=== PATIENT | female | born 1970 | race Caucasian/White ===

== ENCOUNTER → 2018-08-12 17:38 | Outpatient (CLI) | payer OTHER | END | disposition home or self-care (01) | LOC: D.MRI 07:00 | DX: M25.551 Pain in right hip (principal) ==

== ENCOUNTER → 2018-08-19 16:52 | Outpatient (CLI) | payer OTHER | END | disposition home or self-care (01) | LOC: D.LABREF 16:52 | DX: M87.88 Other osteonecrosis, other site (principal); Z11.8 Encounter for screening for other infectious and parasitic diseases ==

== ENCOUNTER 2018-09-21 05:05 | Inpatient (IN) | payer OTHER ==
[2018-09-16 11:51] LABS: BASOPHILS 0.3 % (0-2); EOSINOPHILS 4.9 % (0-7); HEMATOCRIT 37.5 % (36.0-48.0); HEMOGLOBIN 12.2 g/dL (12-16); IMMATURE GRANULOCYTES 0.3 % (0-5); LYMPHOCYTES 30.8 % (15-50); MCHC 32.5 g/dL (31.0-37.0); MCV 86.2 fL (80.0-100.0); MONOCYTES 6.5 % (2-11); NEUTROPHILS 57.2 % (40-80); PLATELET COUNT 170 10x3/uL (130-400); RBC 4.35 10x6/uL (4.00-5.40); RDW 14.2 % (11.5-14.5)
[2018-09-16 11:54] LABS: CALC OSMOLALITY 274 mosm/kg (275-300); CALCIUM 9.6 mg/dL (8.5-10.1); CARBON DIOXIDE 25.5 mmol/L (21.0-32.0); CHLORIDE - SERUM 101 mmol/L (98-107); CREATININE - SERUM 0.6 mg/dL (0.6-1.3); GLUCOSE 106 mg/dL (74-106); POTASSIUM - SERUM 4.2 mmol/L (3.5-5.1); SODIUM 137 mmol/L (136-145); UREA NITROGEN 16 mg/dL (7-18); eGFR NON AFRICAN AMERICAN > 90 mL/min (90-120)
[2018-09-16 11:55] LABS: APTT 35.5 SECONDS (22.8-39.4); INR 1.02 (0.85-1.17)
[2018-09-16 12:12] LABS: APPEARANCE CLEAR (CLEAR); BILIRUBIN NEGATIVE (NEGATIVE); COLOR YELLOW (YELLOW); GLUCOSE NEGATIVE (NEGATIVE); KETONE NEGATIVE (NEGATIVE); NITRITE NEGATIVE (NEGATIVE); PROTEIN NEGATIVE (NEGATIVE); SPECIFIC GRAVITY 1.015 (1.005-1.020); UROBILINOGEN NORMAL (NORMAL)
[~2018-09-21] VITALS: Ht 172.7 cm; Wt 99.5 kg
--- NOTE | ~2018-09-21 | MORECARE ---
CASE MANAGEMENT DISCHARGE SUMMARY PATIENT: MELA BOLDEN UNIT: [id number] ADM DATE: 09/21/18 AGE: 48 : [birth year] SEX: F ROOM/BED: D.2208 AUTHOR: DENI BRAN PHYSICIAN: REFERRING PHYSICIAN: NILA PINEDA MD DATE OF SERVICE: 09/24/18 Discharge Plan Patient Name: MELA BOLDEN Facility: [facility]:[place] : 1970 Planned Disposition: Home Anticipated Discharge Date: Discharge Date: Expected LOS: Initial Reviewer: [email or web address] Initial Review Date: 09/21/2018 Generated: 09/24/18 10:52 am Comments DCP- Discharge Planning Updated by [email or web address]: Adelaida Krueger on 09/24/18 8:[address] Patient Name: MELA BOLDEN Encounter No: [id number] : 1970 Primary Insurance: [facility] Anticipated DC Date: Planned Disposition: Home External Planned Provider: : DCP follow-up note: Patient and family in agreement with discharge plan. No changes to plan. Case management will follow and assist as needed. Adelaida Krueger DCP- Discharge Planning Updated by [email or web address]: Adelaida Krueger on 09/22/18 11:[address] Patient Name: MELA BOLDEN Admission Status: Elective Accout number: [id number] Admission Date: 09-21-2018 : 1970 Admission Diagnosis: Attending: NILA PINEDA Current LOS: 1 Anticipated DC Date: Planned Disposition: Home Primary Insurance: [facility] Discharge Planning Comments: CM met with patient to assess discharge planning needs. Patient lives independently at home, but will be discharging to her mothers house. Patient's house has 28 steps to enter her home and at her mothers house she will only have 4 steps. She stated that she has a walker, wheelchair, BSC, shower chair at home. She would like to do her therapy at [facility]. Patient's OP appointment is made for FridaySep 28 at 10:00 I spoke with Bill. If she discharges tomorrow CM will change her OP PT for Thursday. CM will continue to follow and assist with DC planning. Microarray Operations Vice President: Adelaida Krueger DCPIA - Discharge Planning Initial Assessment Updated by [email or web address]: Adelaida Krueger on 09/22/18 12:43 pm * Is the patient Alert and Oriented? Yes * How many steps to enter\exit or inside your home? 28 (4 mom) * PCP Betty Barry APN * Pharmacy [facility] on [address] * Preadmission Environment Home with Family * ADLs Independent * Equipment Bedside Commode Rolling Walker Shower Chair Walker Wheelchair * List name and contact numbers for known caregivers / representatives who currently or will assist patient after discharge: Venus (mother) [phone] * Verbal permission to speak to the caregivers and representatives has been obtained from the patient. Yes * Community resources currently utilized None * Additional services required to return to the preadmission environment? Yes * Can the patient safely return to the preadmission environment? Yes * Has this patient been hospitalized within the prior 30 days at any hospital? No Last DP export: 09/22/18 11:49 Patient Name: MELA BOLDEN Page 54368 at 0952 All edits/amendments must be made on the electronic document DICTATION DATE: 09/24/18950 BOX BENDER: RIGOBERTO 09/24/18950 RPT#: [id number] DC DATE: STATUS: ADM IN [facility] [address] [place] [address] END OF REPORT
--- NOTE | ~2018-09-21 | MORECARE ---
CASE MANAGEMENT DISCHARGE SUMMARY PATIENT: MELA BOLDEN UNIT: [id number] ADM DATE: 09/21/18 AGE: 48 : 66 SEX: F ROOM/BED: D.2208 AUTHOR: DENI BRAN PHYSICIAN: REFERRING PHYSICIAN: NILA PINEDA MD DATE OF SERVICE: 09/22/18 Discharge Plan Patient Name: MELA BOLDEN Facility: [facility]:[place] : 1970 Planned Disposition: Home Anticipated Discharge Date: Discharge Date: Expected LOS: Initial Reviewer: [email or web address] Initial Review Date: 09/21/2018 Generated: 09/22/18 1:49 pm Comments DCP- Discharge Planning Updated by [email or web address]: Adelaida Krueger on 09/22/18 11:[address] Patient Name: MELA BOLDEN Admission Status: Elective Accout number: [id number] Admission Date: 09-21-2018 : 1970 Admission Diagnosis: Attending: NILA PINEDA Current LOS: 1 Anticipated DC Date: Planned Disposition: Home Primary Insurance: [facility] Discharge Planning Comments: CM met with patient to assess discharge planning needs. Patient lives independently at home, but will be discharging to her mothers house. Patient's house has 28 steps to enter her home and at her mothers house she will only have 4 steps. She stated that she has a walker, wheelchair, BSC, shower chair at home. She would like to do her therapy at [facility]. Patient's OP appointment is made for FridaySep 28 at 10:00 I spoke with Bill. If she discharges tomorrow CM will change her OP PT for . CM will continue to follow and assist with DC planning. Data Architect Manager: Adelaida Krueger DCPIA - Discharge Planning Initial Assessment Updated by [email or web address]: Adelaida Krueger on 09/22/18 12:43 pm * Is the patient Alert and Oriented? Yes * How many steps to enter\exit or inside your home? 28 (4 mom) * PCP Betty Barry APN * Pharmacy [facility] on [place] * Preadmission Environment Home with Family * ADLs Independent * Equipment Bedside Commode Rolling Walker Shower Chair Walker Wheelchair * List name and contact numbers for known caregivers / representatives who currently or will assist patient after discharge: Venus (mother) [phone] * Verbal permission to speak to the caregivers and representatives has been obtained from the patient. Yes * Community resources currently utilized None * Additional services required to return to the preadmission environment? Yes * Can the patient safely return to the preadmission environment? Yes * Has this patient been hospitalized within the prior 30 days at any hospital? No Last DP export: 09/22/18 11:42 Patient Name: MELA BOLDEN Page 83522 at 1249 All edits/amendments must be made on the electronic document DICTATION DATE: 09/22/181248 LEAD C DEVELOPER: RIGOBERTO 09/22/181248 RPT#: [id number] DC DATE: STATUS: ADM IN [facility] [address] [place] [address] END OF REPORT
--- NOTE | ~2018-09-21 | OP ---
PATIENT NAME: MELA BOLDEN MEDICAL RECORD: [id number] :[birth year] LOCATION:D.MS [address]8 ADMISSION DATE:09/21/18 SURGEON: NILA PINEDA MD DATE OF OPERATION: 09/21/2018 PREOPERATIVE DIAGNOSIS: Avascular necrosis of the right hip. POSTOPERATIVE DIAGNOSIS: Avascular necrosis of the right hip. PROCEDURE: Right total hip arthroplasty. SURGEON: Nila Pineda MD ANESTHESIA: General. INTRAOPERATIVE COMPLICATIONS: None. SUMMARY OF PATHOLOGIC FINDINGS: Consistent with the preoperative diagnosis. The patient had collapse of the right femoral head. IMPLANTS USED: Jeny Accolade II stem, Jenkins Trident 2 cup, 36 D alpha code insert, 36 -2.5 mm Biolox insert, size 50 Tritanium Trident II cluster hole cup and 132 degree neck angle Accolade 4 TMZF coated. ESTIMATED BLOOD LOSS: 300 cc. OPERATIVE SUMMARY IN DETAIL: After obtaining appropriate preoperative orthopedic surgery consent as well as anesthetic consultation, evaluation and clearance, the patient was brought to the operating room and placed on the operating room table in a supine position. After general laryngeal mask airway was administered, the patient was placed in a left lateral decubitus position. All pressure points were well padded including the down leg perineal pad as well as axillary roll. The patient was held firmly to the operating table using vacuum pack suction system. Right lower extremity was then prepped and draped in routine sterile fashion. Curvilinear incision was made over the greater trochanter taking in line of the IT and split in line of the fibers of the IT band to reveal the gluteus medius and minimus attachment. These were reflected anteriorly. The hip capsule was split in a T-type fashion and saved for later reapproximation. Hip was dislocated. Femoral neck cut was made using the femoral neck cutting guide from the Accolade II system. At this point, the hip was approached. Circumferential labrectomy was followed with serial and sequential reaming to a size 50. A line to line was used for the Trident given this patient's young hard bone. A size [address] with good capture, no screws needed. Polyethylene liner was snapped into place and checked with the Stephani to be sure it was appropriately fit. Attention was then turned to the proximal femur. Serial and sequential reaming and broaching were done of the proximal femur for a size 4 Accolade II stem, which was put into place. Trials were then taken. It was felt that the -2.5 Biolox was the most appropriate for leg length maintenance and confucianist. This was tamped into place with the Brown taper, reduced, taken through range of motion and found to be stable in all planes. Intraoperative radiographs were taken and showed good position and placement of all components with exact leg length matching. Wound was copiously irrigated. A dilute Betadine irrigation was then followed by placement of 1 gram of vancomycin, 1 gram of tobramycin, and 1 gram of TXA into the wound. The gluteus medius and minimus were then reapproximated back to the greater OPERATIVE REPORT [id number] MELA BOLDEN trochanter using #5 Ethibond in a transosseous fashion. Having completed that, the IT band was closed with #2 Ethibond followed by #1 Vicryl, 2-0 Vicryl, and skin constance. Sterile dressings were applied. The patient was awakened and taken to recovery room in stable condition. All final needle and sponge counts were correct. TRANSINT:[id number] Voice Confirmation ID: [id number] DOCUMENT ID: [id number] 09/28/2018 Edited for cobbler sole errors, dmapryl. MIRIAM DIAZ, NILA JUNIOR at 1512 CC: [id number] DICTATION DATE: 09/21/18 1024 CERTIFIED ADAPTIVE PHYSICAL EDUCATOR: 09/21/18 1111 DIS IN 09/24/18 [place] [place] [address]
--- NOTE | ~2018-09-21 | MORECARE ---
CASE MANAGEMENT DISCHARGE SUMMARY PATIENT: MELA BOLDEN UNIT: [id number] ADM DATE: 09/21/18 AGE: 48 : [birth year] SEX: F ROOM/BED: D.2208 AUTHOR: DENI BRAN PHYSICIAN: REFERRING PHYSICIAN: NILA PINEDA MD DATE OF SERVICE: 09/22/18 Discharge Plan Patient Name: MELA BOLDEN Facility: [facility]:[place] : 1970 Planned Disposition: Home Anticipated Discharge Date: Discharge Date: Expected LOS: Initial Reviewer: [email or web address] Initial Review Date: 09/21/2018 Generated: 09/22/18 1:42 pm Patient Name: MELA BOLDEN Page 68166 at 1242 All edits/amendments must be made on the electronic document DICTATION DATE: 09/22/18 1241 WAGE ANALYST: RIGOBERTO 09/22/18 1241 RPT#: [id number] DC DATE: STATUS: ADM IN [facility] [address] [place] [address] END OF REPORT
--- NOTE | ~2018-09-21 | MORECARE ---
CASE MANAGEMENT DISCHARGE SUMMARY PATIENT: MELA BOLDEN UNIT: [id number] ADM DATE: 09/21/18 AGE: 48 : [birth year] SEX: F ROOM/BED: D.2208 AUTHOR: DENI BRAN PHYSICIAN: REFERRING PHYSICIAN: NILA PINEDA MD DATE OF SERVICE: 09/25/18 Discharge Plan Patient Name: MELA BOLDEN Facility: [facility]:[place] : 1970 Planned Disposition: Home Anticipated Discharge Date: Discharge Date: 09/24/2018 Expected LOS: 0 Initial Reviewer: [email or web address] Initial Review Date: 09/21/2018 Generated: 09/25/18 12:27 pm Comments DCP- Discharge Planning Updated by [email or web address]: Adelaida Krueger on 09/24/18 8:[address] Patient Name: MELA BOLDEN Encounter No: [id number] : 1970 Primary Insurance: [employer] [facility] Anticipated DC Date: Planned Disposition: Home External Planned Provider: : DCP follow-up note: Patient and family in agreement with discharge plan. No changes to plan. Case management will follow and assist as needed. Adelaida Krueger DCP- Discharge Planning Updated by [email or web address]: Adelaida Krueger on 09/22/18 11:[address] Patient Name: MELA BOLDEN Admission Status: Elective Accout number: [id number] Admission Date: 09-21-2018 : 1970 Admission Diagnosis: Attending: NILA PINEDA Current LOS: 1 Anticipated DC Date: Planned Disposition: Home Primary Insurance: [employer] [facility] Discharge Planning Comments: CM met with patient to assess discharge planning needs. Patient lives independently at home, but will be discharging to her mothers house. Patient's house has 28 steps to enter her home and at her mothers house she will only have 4 steps. She stated that she has a walker, wheelchair, BSC, shower chair at home. She would like to do her therapy at [facility]. Patient's OP appointment is made for FridaySep 28 at 10:00 I spoke with Bill. If she discharges tomorrow CM will change her OP PT for . CM will continue to follow and assist with DC planning. Cst: Adelaida Krueger DCPIA - Discharge Planning Initial Assessment Updated by [email or web address]: Adelaida Krueger on 09/22/18 12:43 pm * Is the patient Alert and Oriented? Yes * How many steps to enter\exit or inside your home? 28 (4 mom) * PCP Betty Barry CONCRETE PUMP OPERATOR HELPER * Pharmacy [facility] on [address] * Preadmission Environment Home with Family * ADLs Independent * Equipment Bedside Commode Rolling Walker Shower Chair Walker Wheelchair * List name and contact numbers for known caregivers / representatives who currently or will assist patient after discharge: Venus (mother) [phone] * Verbal permission to speak to the caregivers and representatives has been obtained from the patient. Yes * Community resources currently utilized None * Additional services required to return to the preadmission environment? Yes * Can the patient safely return to the preadmission environment? Yes * Has this patient been hospitalized within the prior 30 days at any hospital? No Last DP export: 09/24/18 8:52 a Patient Name: MELA BOLDEN Page 00301 at 1127 All edits/amendments must be made on the electronic document DICTATION DATE: 09/25/181126 STORE LEAD: RIGOBERTO 09/25/181126 RPT#: [id number] DC DATE:09/24/18 STATUS: DIS IN [facility] [address] [place] [address] END OF REPORT
[~2018-09-21 05:05] MED LIST: BENICAR40 MG PO; ESKALITH CR450 M1 PO; KLONOPIN0.5 MG PO; KLONOPIN1 MG PO; LIPITOR40 MG PO; LYRICA150 MG PO; MINIVELLE1 EAC1 TRANSDERM; NORCO 5/325 TAB1 TAB PO; PROZAC20 MG PO; SINGULAIR10 MG PO; VAGIFEM10 MCG VG
[2018-09-21 06:12] VITALS: BP 146/82; BMI 33.5
[2018-09-21 12:47] VITALS: BP 124/74; BMI 33.3
[2018-09-21 21:47] VITALS: BP 115/54
[2018-09-22 00:20] VITALS: BP 118/64
[2018-09-22 04:45] LABS: HEMATOCRIT 32.6 % (36.0-48.0); HEMOGLOBIN 10.3 g/dL (12-16); MCH 27.4 pg (26.0-34.0); MCHC 31.6 g/dL (31.0-37.0); MCV 86.7 fL (80.0-100.0); MEAN PLATELET VOLUME 9.4 fL (7.4-10.4); RBC 3.76 10x6/uL (4.00-5.40); RDW 14.3 % (11.5-14.5); WBC 8.9 10x3/uL (4.8-10.8)
[2018-09-22 05:43] VITALS: BP 129/73
[2018-09-22 08:30] VITALS: BP 104/64
[2018-09-22 12:34] VITALS: BP 128/65
[2018-09-22 15:45] VITALS: BP 117/55
[2018-09-22 17:51] VITALS: Ht 172.7 cm; Wt 99.5 kg
[2018-09-22 20:49] VITALS: BP 108/56
[2018-09-23 00:35] VITALS: BP 124/64
[2018-09-23 04:42] VITALS: BP 116/60
[2018-09-23 05:54] LABS: HEMATOCRIT 29.2 % (36.0-48.0); HEMOGLOBIN 9.1 g/dL (12-16); MCH 27.4 pg (26.0-34.0); MCHC 31.2 g/dL (31.0-37.0); MEAN PLATELET VOLUME 10.4 fL (7.4-10.4); RBC 3.32 10x6/uL (4.00-5.40); RDW 14.6 % (11.5-14.5)
[2018-09-23 05:56] LABS: WBC 6.5 10x3/uL (4.8-10.8)
[2018-09-23 08:33] VITALS: BP 117/74
[2018-09-23 12:45] VITALS: BP 111/58
[2018-09-23 22:16] VITALS: BP 137/62
[2018-09-24 04:58] VITALS: BP 140/70
[2018-09-24] MEDS ORDERED: ELIQUIS2.5 MG PO (07:36)
[2018-09-24] MEDS ORDERED: OXYCODONE-APAP1 TAB PO (07:37)
[2018-09-24] MEDS ORDERED: FOLBEE PLUS TAB1 TAB PO (07:38)
[2018-09-24 11:00] VITALS: BP 117/71
== END 2018-09-24 12:30 | disposition home or self-care (01) | DRG 470 ==
LOC: D.SDCHOLD 05:05 → D.MS 05:05 → D.SDCHOLD 07:30 → D.MS 11:26
PROVIDERS: Orthopaedic Surgery
PROC: 0SR90JZ Replacement of Right Hip Joint with Synthetic Substitute, Open Approach (ICD-10-PCS; principal; 2018-09-21 08:00)
DX: M87.9 Osteonecrosis, unspecified (principal); E72.12 Methylenetetrahydrofolate reductase deficiency; I10 Essential (primary) hypertension; E78.5 Hyperlipidemia, unspecified; K21.9 Gastro-esophageal reflux disease without esophagitis; F41.8 Other specified anxiety disorders

== ENCOUNTER 2018-09-26 18:57 | Inpatient (IN) | payer OTHER ==
[~2018-09-26] VITALS: Ht 172.7 cm; Wt 101.6 kg
--- NOTE | ~2018-09-26 | MORECARE ---
CASE MANAGEMENT DISCHARGE SUMMARY PATIENT: ADELE BOLDEN UNIT: [id number] ADM DATE: 09/26/18 AGE: 48 : 66 SEX: F ROOM/BED: D.2237 AUTHOR: DENI BRAN PHYSICIAN: REFERRING PHYSICIAN: NILA PINEDA MD DATE OF SERVICE: 10/02/18 Discharge Plan Patient Name: ADELE BOLDEN Facility: [facility]:[place] : 1970 Planned Disposition: Home Anticipated Discharge Date: Discharge Date: 10/01/2018 Expected LOS: Initial Reviewer: [email or web address] Initial Review Date: 09/29/2018 Generated: 10/02/18 4:47 pm Comments DCP- Discharge Planning Updated by [email or web address]: Tracy Umanzor on 10/01/18 8:[address] Received discharge orders. She is in agreement to discharge. She is going to her home and her sister will be staying with her. She states she feels comfortable with the stairs at her home and will have assistance to get up the stairs and then will stay in her one level home until her doctor appointment. I spoke with Adele at [facility] and they will see her tomorrow. Discharging today home with home health. DCP- Discharge Planning Updated by [email or web address]: Tracy Umanzor on 09/30/18 10:[address] Spoke with patient regarding discharge planning. RALPH for [facility] signed. She states her shoe does not fit. I called Luis Cardoza and Nedra and informed, she will have Hi call me. I called Adele at [facility] and she will put on her books to see tomorrow. States she will go to her home and her sister is going to stay with her. CM will continue to follow and assist with discharge planning/needs. DCP- Discharge Planning Updated by [id number]: Tracy Mcgregorpurnima on 09/29/18 9:[address] Patient Name: ADELE BOLDEN Admission Status: ER Accout number: [id number] Admission Date: 09-26-2018 : 1970 Admission Diagnosis:POSTPROCEDURAL FEVER Attending: BORIS ALLEN Current LOS: 3 Anticipated DC Date: Planned Disposition: Home Primary Insurance: [facility] Discharge Planning Comments: CM met with patient to discuss discharge planning, she is alone in the room. States she was staying with her mother prior to admission. States her mother only has 4 steps to get into her home and she has 28 steps at her own home. States she will be going back to stay with her mother again on discharge. States she has all the DME she needs. Declines need for home health services. States she will use [facility] for OP PT. States she has not started this yet. No needs identified at this time. CM will continue to follow and assist with discharge planning/needs. Director Of Clinical Education: Tracy Umanzor DCPIA - Discharge Planning Initial Assessment Updated by [email or web address]: Tracy Umanzor on 09/29/18 10:02 am * Is the patient Alert and Oriented? Yes * How many steps to enter\exit or inside your home? 4/0 * PCP Ariana Barry APN for Dr. Haider * Pharmacy [facility] on [address] * Preadmission Environment Home with Family * ADLs Partial Dependent * Partial ADLs (Assistance needed) Ambulation * Equipment Bedside Commode Rolling Walker Shower Chair Walker Wheelchair * List name and contact numbers for known caregivers / representatives who currently or will assist patient after discharge: Venus rubalcava - [phone] * Verbal permission to speak to the caregivers and representatives has been obtained from the patient. Yes * Community resources currently utilized Other * Please name any agencies selected above. Outpatient PT set up at [facility] * Additional services required to return to the preadmission environment? No * Can the patient safely return to the preadmission environment? Yes * Has this patient been hospitalized within the prior 30 days at any hospital? Yes Last DP export: 10/01/18 8:15 a Patient Name: ADELE BOLDEN Page 30090 at 1547 All edits/amendments must be made on the electronic document DICTATION DATE: 10/02/181545 SUPERVISOR MAJOR APPLIANCE ASSEMBLY: RIGOBERTO 10/02/181545 RPT#: [id number] DC DATE:10/01/18 STATUS: DIS IN [facility] [address] [place] [address] END OF REPORT
--- NOTE | ~2018-09-26 | MORECARE ---
CASE MANAGEMENT DISCHARGE SUMMARY PATIENT: ADELE BOLDEN UNIT: [id number] ADM DATE: 09/26/18 AGE: 48 : 66 SEX: F ROOM/BED: D.2237 AUTHOR: DENI BRAN PHYSICIAN: REFERRING PHYSICIAN: BORIS ALLEN MD DATE OF SERVICE: 10/01/18 Discharge Plan Patient Name: ADELE BOLDEN Facility: [facility]:[place] : 1970 Planned Disposition: Home Anticipated Discharge Date: Discharge Date: Expected LOS: Initial Reviewer: [email or web address] Initial Review Date: 09/29/2018 Generated: 10/01/18 10:15 am Comments DCP- Discharge Planning Updated by [email or web address]: Tracy Mcgregorpurnima on 10/01/18 8:[address] Received discharge orders. She is in agreement to discharge. She is going to her home and her sister will be staying with her. She states she feels comfortable with the stairs at her home and will have assistance to get up the stairs and then will stay in her one level home until her doctor appointment. I spoke with Adele at [facility] and they will see her tomorrow. Discharging today home with home health. DCP- Discharge Planning Updated by [email or web address]: Tracy Noé on 09/30/18 10:[address] Spoke with patient regarding discharge planning. RALPH for [facility] signed. She states her shoe does not fit. I called Luis Cardoza and Nedra and informed, she will have Hi call me. I called Adele at [facility] and she will put on her books to see tomorrow. States she will go to her home and her sister is going to stay with her. CM will continue to follow and assist with discharge planning/needs. DCP- Discharge Planning Updated by [email or web address]: Tracy Noé on 09/29/18 9:[address] Patient Name: ADELE BOLDEN Admission Status: ER Accout number: [id number] Admission Date: 09-26-2018 : 1970 Admission Diagnosis:POSTPROCEDURAL FEVER Attending: BORIS ALLEN Current LOS: 3 Anticipated DC Date: Planned Disposition: Home Primary Insurance: [facility] Discharge Planning Comments: CM met with patient to discuss discharge planning, she is alone in the room. States she was staying with her mother prior to admission. States her mother only has 4 steps to get into her home and she has 28 steps at her own home. States she will be going back to stay with her mother again on discharge. States she has all the DME she needs. Declines need for home health services. States she will use [facility] for OP PT. States she has not started this yet. No needs identified at this time. CM will continue to follow and assist with discharge planning/needs. Cd Manufacturing Supervisor: Tracy Umanzor DCPIA - Discharge Planning Initial Assessment Updated by [email or web address]: Tracy Noé on 09/29/18 10:02 am * Is the patient Alert and Oriented? Yes * How many steps to enter\exit or inside your home? 4/0 * PCP Ariana Barry APN for Dr. Haider * Pharmacy [facility] on [address] * Preadmission Environment Home with Family * ADLs Partial Dependent * Partial ADLs (Assistance needed) Ambulation * Equipment Bedside Commode Rolling Walker Shower Chair Walker Wheelchair * List name and contact numbers for known caregivers / representatives who currently or will assist patient after discharge: Venus rubalcava - [phone] * Verbal permission to speak to the caregivers and representatives has been obtained from the patient. Yes * Community resources currently utilized Other * Please name any agencies selected above. Outpatient PT set up at [facility] * Additional services required to return to the preadmission environment? No * Can the patient safely return to the preadmission environment? Yes * Has this patient been hospitalized within the prior 30 days at any hospital? Yes Last DP export: 09/30/18 10:12 a Patient Name: ADELE BOLDEN Page 56050 at 0915 All edits/amendments must be made on the electronic document DICTATION DATE: 10/01/18914 DRY PRESS OPERATOR HELPER: RIGOBERTO 10/01/18914 RPT#: [id number] DC DATE: STATUS: ADM IN [facility] [address] [place] [address] END OF REPORT
--- NOTE | ~2018-09-26 | MORECARE ---
CASE MANAGEMENT DISCHARGE SUMMARY PATIENT: MELA BOLDEN UNIT: [id number] ADM DATE: 09/26/18 AGE: 48 : 66 SEX: F ROOM/BED: D.2237 AUTHOR: DENI BRAN PHYSICIAN: REFERRING PHYSICIAN: BORIS ALLEN MD DATE OF SERVICE: 09/29/18 Discharge Plan Patient Name: MELA BOLDEN Facility: [facility]:[employer] : 1970 Planned Disposition: Home Anticipated Discharge Date: Discharge Date: Expected LOS: Initial Reviewer: [email or web address] Initial Review Date: 09/29/2018 Generated: 09/29/18 11:09 am Comments DCP- Discharge Planning Updated by [email or web address]: Tracy Umanzor on 09/29/18 9:[address] Patient Name: MELA BOLDEN Admission Status: ER Accout number: [id number] Admission Date: 09-26-2018 : 1970 Admission Diagnosis:POSTPROCEDURAL FEVER Attending: BORIS ALLEN Current LOS: 3 Anticipated DC Date: Planned Disposition: Home Primary Insurance: [facility] Discharge Planning Comments: CM met with patient to discuss discharge planning, she is alone in the room. States she was staying with her mother prior to admission. States her mother only has 4 steps to get into her home and she has 28 steps at her own home. States she will be going back to stay with her mother again on discharge. States she has all the DME she needs. Declines need for home health services. States she will use NP for OP PT. States she has not started this yet. No needs identified at this time. CM will continue to follow and assist with discharge planning/needs. Slime Plant Operator: Tracy Umanzor DCPIA - Discharge Planning Initial Assessment Updated by [email or web address]: Tracy Umanzor on 09/29/18 10:02 am * Is the patient Alert and Oriented? Yes * How many steps to enter\exit or inside your home? 4/0 * PCP Ariana Barry APN for Dr. Haider * Pharmacy [facility] on [address] * Preadmission Environment Home with Family * ADLs Partial Dependent * Partial ADLs (Assistance needed) Ambulation * Equipment Bedside Commode Rolling Walker Shower Chair Walker Wheelchair * List name and contact numbers for known caregivers / representatives who currently or will assist patient after discharge: Venus rubalcava - [phone] * Verbal permission to speak to the caregivers and representatives has been obtained from the patient. Yes * Community resources currently utilized Other * Please name any agencies selected above. Outpatient PT set up at [facility] * Additional services required to return to the preadmission environment? No * Can the patient safely return to the preadmission environment? Yes * Has this patient been hospitalized within the prior 30 days at any hospital? Yes Last DP export: 09/29/18 9:00 a Patient Name: MELA BOLDEN Page 95590 at 1009 All edits/amendments must be made on the electronic document DICTATION DATE: 09/29/181007 MILITARY AIRCRAFT DESIGNER: RIGOBERTO 09/29/181007 RPT#: [id number] DC DATE: STATUS: ADM IN [facility] [address] [place] [address] END OF REPORT
--- NOTE | ~2018-09-26 | MORECARE ---
CASE MANAGEMENT DISCHARGE SUMMARY PATIENT: ADELE BOLDEN UNIT: [id number] ADM DATE: 09/26/18 AGE: 48 : 66 SEX: F ROOM/BED: D.2237 AUTHOR: DENI BRAN PHYSICIAN: REFERRING PHYSICIAN: BORIS ALLEN MD DATE OF SERVICE: 09/30/18 Discharge Plan Patient Name: ADELE BOLDEN Facility: [facility]:[place] : 1970 Planned Disposition: Home Anticipated Discharge Date: Discharge Date: Expected LOS: Initial Reviewer: [email or web address] Initial Review Date: 09/29/2018 Generated: 09/30/18 12:12 pm Comments DCP- Discharge Planning Updated by [email or web address]: Tracy Mcgregorpurnima on 09/30/18 10:[address] Spoke with patient regarding discharge planning. RALPH for [employer] [facility] [address] [address] signed. She states her shoe does not fit. I called Luis Cardoza and Nedra and informed, she will have Hi call me. I called Adele at [employer] [facility] [address] and she will put on her books to see tomorrow. States she will go to her home and her sister is going to stay with her. CM will continue to follow and assist with discharge planning/needs. DCP- Discharge Planning Updated by [email or web address]: Tracy Mcgregorpurnima on 09/29/18 9:[address] Patient Name: ADELE BOLDEN Admission Status: ER Accout number: [id number] Admission Date: 09-26-2018 : 1970 Admission Diagnosis:POSTPROCEDURAL FEVER Attending: BORIS ALLEN Current LOS: 3 Anticipated DC Date: Planned Disposition: Home Primary Insurance: [facility] Discharge Planning Comments: CM met with patient to discuss discharge planning, she is alone in the room. States she was staying with her mother prior to admission. States her mother only has 4 steps to get into her home and she has 28 steps at her own home. States she will be going back to stay with her mother again on discharge. States she has all the DME she needs. Declines need for home health services. States she will use NP for OP PT. States she has not started this yet. No needs identified at this time. CM will continue to follow and assist with discharge planning/needs. Elevator Dispatcher: Tracy Noé DCPIA - Discharge Planning Initial Assessment Updated by [email or web address]: Tracy Noé on 09/29/18 10:02 am * Is the patient Alert and Oriented? Yes * How many steps to enter\exit or inside your home? 4/0 * PCP Ariana Barry APN for Dr. Haider * Pharmacy [facility] on [address] * Preadmission Environment Home with Family * ADLs Partial Dependent * Partial ADLs (Assistance needed) Ambulation * Equipment Bedside Commode Rolling Walker Shower Chair Walker Wheelchair * List name and contact numbers for known caregivers / representatives who currently or will assist patient after discharge: Venus Lau [facility] - [phone] * Verbal permission to speak to the caregivers and representatives has been obtained from the patient. Yes * Community resources currently utilized Other * Please name any agencies selected above. Outpatient PT set up at [facility] * Additional services required to return to the preadmission environment? No * Can the patient safely return to the preadmission environment? Yes * Has this patient been hospitalized within the prior 30 days at any hospital? Yes Last DP export: 09/30/18 9:58 a Patient Name: ADELE BOLDEN Page 93396 at 1112 All edits/amendments must be made on the electronic document DICTATION DATE: 09/30/181111 IS CONSULTANT: RIGOBERTO 09/30/181111 RPT#: [id number] DC DATE: STATUS: ADM IN [facility] [address] [place] [address] END OF REPORT
--- NOTE | ~2018-09-26 | MORECARE ---
CASE MANAGEMENT DISCHARGE SUMMARY PATIENT: MELA BOLDEN UNIT: [id number] ADM DATE: 09/26/18 AGE: 48 : 66 SEX: F ROOM/BED: D.2237 AUTHOR: DENI BRAN PHYSICIAN: REFERRING PHYSICIAN: BORIS ALLEN MD DATE OF SERVICE: 09/30/18 Discharge Plan Patient Name: MELA BOLDEN Facility: [facility]:[place] : 1970 Planned Disposition: Home Anticipated Discharge Date: Discharge Date: Expected LOS: Initial Reviewer: [email or web address] Initial Review Date: 09/29/2018 Generated: 09/30/18 11:58 am Comments DCP- Discharge Planning Updated by [email or web address]: Tracy Umanzor on 09/29/18 9:[address] Patient Name: MELA BOLDEN Admission Status: ER Accout number: [id number] Admission Date: 09-26-2018 : 1970 Admission Diagnosis:POSTPROCEDURAL FEVER Attending: BORIS ALLEN Current LOS: 3 Anticipated DC Date: Planned Disposition: Home Primary Insurance: [facility] Discharge Planning Comments: CM met with patient to discuss discharge planning, she is alone in the room. States she was staying with her mother prior to admission. States her mother only has 4 steps to get into her home and she has 28 steps at her own home. States she will be going back to stay with her mother again on discharge. States she has all the DME she needs. Declines need for home health services. States she will use NP for OP PT. States she has not started this yet. No needs identified at this time. CM will continue to follow and assist with discharge planning/needs. Medical Administrator: Tracy Umanzor DCPIA - Discharge Planning Initial Assessment Updated by [email or web address]: Tracy Umanzor on 09/29/18 10:02 am * Is the patient Alert and Oriented? Yes * How many steps to enter\exit or inside your home? 4/0 * PCP Ariana Barry APN for Dr. Haider * Pharmacy [facility] on [address] * Preadmission Environment Home with Family * ADLs Partial Dependent * Partial ADLs (Assistance needed) Ambulation * Equipment Bedside Commode Rolling Walker Shower Chair Walker Wheelchair * List name and contact numbers for known caregivers / representatives who currently or will assist patient after discharge: Venus rubalcava - [phone] * Verbal permission to speak to the caregivers and representatives has been obtained from the patient. Yes * Community resources currently utilized Other * Please name any agencies selected above. Outpatient PT set up at [facility] * Additional services required to return to the preadmission environment? No * Can the patient safely return to the preadmission environment? Yes * Has this patient been hospitalized within the prior 30 days at any hospital? Yes External Providers External Provider: [email or web address] Next Contact Date: Service Request Date: Service Type: Resolution: Reviewer: Comments: Last DP export: 09/29/18 9:09 a Patient Name: MELA BOLDEN Page 93013 at 1058 All edits/amendments must be made on the electronic document DICTATION DATE: 09/30/181057 BAG SEALER: RIGOBERTO 09/30/18 1058 RPT#: [id number] DC DATE: STATUS: ADM IN [facility] [address] [place] [address] END OF REPORT
--- NOTE | ~2018-09-26 | MORECARE ---
CASE MANAGEMENT DISCHARGE SUMMARY PATIENT: MELA BOLDEN UNIT: [id number] ADM DATE: 09/26/18 AGE: 48 : 66 SEX: F ROOM/BED: D.2237 AUTHOR: DENI BRAN PHYSICIAN: REFERRING PHYSICIAN: BORIS ALLEN MD DATE OF SERVICE: 09/29/18 Discharge Plan Patient Name: MELA BOLDEN Facility: [facility]:[place] : 1970 Planned Disposition: Home Anticipated Discharge Date: Discharge Date: Expected LOS: Initial Reviewer: [email or web address] Initial Review Date: 09/29/2018 Generated: 09/29/18 11:00 am Patient Name: MELA BOLDEN Page 65516 at 1000 All edits/amendments must be made on the electronic document DICTATION DATE: 09/29/18 1000 SPD MANAGER: RIGOBERTO 09/29/18 1000 RPT#: [id number] DC DATE: STATUS: ADM IN [facility] [address] [place] [address] END OF REPORT
[~2018-09-26 18:57] MED LIST changes: +ELIQUIS2.5 MG PO; +FOLBEE PLUS TAB1 TAB PO; +OXYCODONE-APAP1 TAB PO
[2018-09-26 20:00] VITALS: BP 123/61
[2018-09-26 20:11] LABS: BASOPHILS 0.3 % (0-2); EOSINOPHILS 3.5 % (0-7); HEMOGLOBIN 10.9 g/dL (12-16); IMMATURE GRANULOCYTES 0.4 % (0-5); LYMPHOCYTES 22.9 % (15-50); MCH 27.3 pg (26.0-34.0); MCHC 31.1 g/dL (31.0-37.0); MCV 87.5 fL (80.0-100.0); MONOCYTES 7.8 % (2-11); NEUTROPHILS 65.1 % (40-80); RDW 14.2 % (11.5-14.5); WBC 6.9 10x3/uL (4.8-10.8)
[2018-09-26 20:12] LABS: PLATELET COUNT 203 10x3/uL (130-400)
[2018-09-26 20:25] LABS: APPEARANCE CLEAR (CLEAR); BILIRUBIN NEGATIVE (NEGATIVE); COLOR YELLOW (YELLOW); GLUCOSE NEGATIVE (NEGATIVE); KETONE NEGATIVE (NEGATIVE); NITRITE NEGATIVE (NEGATIVE); PROTEIN NEGATIVE (NEGATIVE); UROBILINOGEN NORMAL (NORMAL)
[2018-09-26 20:26] LABS: ALBUMIN 3.2 g/dL (3.4-5.0); ALKALINE PHOSPHATASE 131 U/L (46-116); ALT (SGPT) 44 U/L (10-68); BILIRUBIN - TOTAL 0.65 mg/dL (0.2-1.3); CALC OSMOLALITY 273 mosm/kg (275-300); CALCIUM 9.8 mg/dL (8.5-10.1); CARBON DIOXIDE 25.8 mmol/L (21.0-32.0); CHLORIDE - SERUM 100 mmol/L (98-107); CREATININE - SERUM 0.7 mg/dL (0.6-1.3); GLUCOSE 113 mg/dL (74-106); POTASSIUM - SERUM 3.9 mmol/L (3.5-5.1); PROTEIN - SERUM 7.6 g/dL (6.4-8.2); SODIUM 137 mmol/L (136-145); UREA NITROGEN 11 mg/dL (7-18); eGFR NON AFRICAN AMERICAN > 90 mL/min (90-120)
[2018-09-26 22:55] VITALS: BP 105/38
[2018-09-27 00:20] VITALS: BP 105/38
[2018-09-27 05:02] VITALS: BP 103/52
[2018-09-27 09:04] VITALS: BP 96/52
[2018-09-27 11:52] VITALS: BP 149/59
[2018-09-27 15:32] VITALS: BP 114/54
[2018-09-27 20:50] VITALS: BP 117/71
[2018-09-28 01:26] VITALS: BP 103/63
[2018-09-28 05:28] VITALS: BP 94/46
[2018-09-28 08:37] VITALS: BP 93/40
[2018-09-28 11:18] LABS: BASOPHILS 0.2 % (0-2); EOSINOPHILS 3.7 % (0-7); HEMOGLOBIN 9.4 g/dL (12-16); IMMATURE GRANULOCYTES 0.8 % (0-5); LYMPHOCYTES 23.4 % (15-50); MCHC 31.3 g/dL (31.0-37.0); MCV 86.2 fL (80.0-100.0); MONOCYTES 9.7 % (2-11); NEUTROPHILS 62.2 % (40-80); PLATELET COUNT 203 10x3/uL (130-400); RBC 3.48 10x6/uL (4.00-5.40); RDW 14.1 % (11.5-14.5); WBC 5.2 10x3/uL (4.8-10.8)
[2018-09-28 11:26] LABS: CALC OSMOLALITY 277 mosm/kg (275-300); CARBON DIOXIDE 26.1 mmol/L (21.0-32.0); CHLORIDE - SERUM 106 mmol/L (98-107); CREATININE - SERUM 0.6 mg/dL (0.6-1.3); GLUCOSE 112 mg/dL (74-106); POTASSIUM - SERUM 4.2 mmol/L (3.5-5.1); SODIUM 140 mmol/L (136-145); eGFR NON AFRICAN AMERICAN > 90 mL/min (90-120)
[2018-09-28 11:32] LABS: UREA NITROGEN 7 mg/dL (7-18)
[2018-09-28 13:07] VITALS: BP 110/47
[2018-09-28 20:00] VITALS: BP 152/73
[2018-09-29 05:00] VITALS: BP 148/71
[2018-09-29 06:27] LABS: BASOPHILS 0.2 % (0-2); EOSINOPHILS 3.5 % (0-7); HEMATOCRIT 31.1 % (36.0-48.0); HEMOGLOBIN 9.5 g/dL (12-16); IMMATURE GRANULOCYTES 0.8 % (0-5); LYMPHOCYTES 26.2 % (15-50); MCH 26.8 pg (26.0-34.0); MCHC 30.5 g/dL (31.0-37.0); MCV 87.6 fL (80.0-100.0); MEAN PLATELET VOLUME 10.2 fL (7.4-10.4); MONOCYTES 7.9 % (2-11); NEUTROPHILS 61.4 % (40-80); PLATELET COUNT 207 10x3/uL (130-400); RBC 3.55 10x6/uL (4.00-5.40); RDW 14.1 % (11.5-14.5); WBC 5.2 10x3/uL (4.8-10.8)
[2018-09-29 06:47] LABS: CALC OSMOLALITY 274 mosm/kg (275-300); CALCIUM 9.2 mg/dL (8.5-10.1); CARBON DIOXIDE 25.4 mmol/L (21.0-32.0); CHLORIDE - SERUM 104 mmol/L (98-107); CREATININE - SERUM 0.7 mg/dL (0.6-1.3); GLUCOSE 108 mg/dL (74-106); POTASSIUM - SERUM 3.9 mmol/L (3.5-5.1); SODIUM 138 mmol/L (136-145); UREA NITROGEN 7 mg/dL (7-18); eGFR NON AFRICAN AMERICAN > 90 mL/min (90-120)
[2018-09-29 08:51] VITALS: BP 117/54
[2018-09-29 14:50] VITALS: BP 128/65
[2018-09-29 20:08] VITALS: BP 99/55
[2018-09-30 04:40] VITALS: BP 131/61
[2018-09-30 07:06] LABS: BASOPHILS 0.2 % (0-2); EOSINOPHILS 3.4 % (0-7); HEMATOCRIT 32.9 % (36.0-48.0); HEMOGLOBIN 10.1 g/dL (12-16); IMMATURE GRANULOCYTES 0.2 % (0-5); LYMPHOCYTES 32.1 % (15-50); MCH 26.7 pg (26.0-34.0); MCHC 30.7 g/dL (31.0-37.0); MEAN PLATELET VOLUME 10.2 fL (7.4-10.4); MONOCYTES 9.4 % (2-11); NEUTROPHILS 54.7 % (40-80); PLATELET COUNT 187 10x3/uL (130-400); RBC 3.78 10x6/uL (4.00-5.40); RDW 14.2 % (11.5-14.5); WBC 4.4 10x3/uL (4.8-10.8)
[2018-09-30 07:08] LABS: CALC OSMOLALITY 277 mosm/kg (275-300); CALCIUM 9.1 mg/dL (8.5-10.1); CHLORIDE - SERUM 106 mmol/L (98-107); CREATININE - SERUM 0.6 mg/dL (0.6-1.3); GLUCOSE 100 mg/dL (74-106); POTASSIUM - SERUM 4.1 mmol/L (3.5-5.1); SODIUM 140 mmol/L (136-145); UREA NITROGEN 10 mg/dL (7-18); eGFR NON AFRICAN AMERICAN > 90 mL/min (90-120)
[2018-09-30 09:57] VITALS: BP 103/46
[2018-09-30 14:07] VITALS: Ht 172.7 cm; Wt 101.6 kg
[2018-09-30 17:08] VITALS: BP 108/58
[2018-09-30 20:00] VITALS: BP 136/60
[2018-10-01 05:00] VITALS: BP 150/79
[2018-10-01 06:06] LABS: BASOPHILS 0.4 % (0-2); EOSINOPHILS 3.4 % (0-7); HEMATOCRIT 32.2 % (36.0-48.0); HEMOGLOBIN 9.9 g/dL (12-16); IMMATURE GRANULOCYTES 0.4 % (0-5); LYMPHOCYTES 31.3 % (15-50); MCH 26.9 pg (26.0-34.0); MCHC 30.7 g/dL (31.0-37.0); MCV 87.5 fL (80.0-100.0); MEAN PLATELET VOLUME 10.2 fL (7.4-10.4); MONOCYTES 6.2 % (2-11); NEUTROPHILS 58.3 % (40-80); PLATELET COUNT 224 10x3/uL (130-400); RBC 3.68 10x6/uL (4.00-5.40); RDW 14.1 % (11.5-14.5); WBC 5.3 10x3/uL (4.8-10.8)
[2018-10-01 06:17] LABS: CALC OSMOLALITY 278 mosm/kg (275-300); CALCIUM 9.3 mg/dL (8.5-10.1); CHLORIDE - SERUM 104 mmol/L (98-107); CREATININE - SERUM 0.7 mg/dL (0.6-1.3); GLUCOSE 82 mg/dL (74-106); POTASSIUM - SERUM 4.1 mmol/L (3.5-5.1); SODIUM 141 mmol/L (136-145); UREA NITROGEN 10 mg/dL (7-18); eGFR NON AFRICAN AMERICAN > 90 mL/min (90-120)
[2018-10-01 08:35] VITALS: BP 151/65
== END 2018-10-01 11:51 | disposition home health service (06) | DRG 864 ==
LOC: D.ER 18:57 → D.MS 20:13
PROVIDERS: Emergency Medicine; Internal Medicine Nephrology
DX: R50.82 Postprocedural fever (principal); E72.12 Methylenetetrahydrofolate reductase deficiency; G89.18 Other acute postprocedural pain; I10 Essential (primary) hypertension; F41.8 Other specified anxiety disorders; M21.371 Foot drop, right foot; Z96.641 Presence of right artificial hip joint; I95.9 Hypotension, unspecified; Z87.891 Personal history of nicotine dependence

== ENCOUNTER 2018-10-18 16:03 | Inpatient (IN) | payer OTHER ==
[~2018-10-18] VITALS: Ht 172.7 cm; Wt 101.8 kg
--- NOTE | ~2018-10-18 | MORECARE ---
CASE MANAGEMENT DISCHARGE SUMMARY PATIENT: MELA BOLDEN UNIT: [id number] ADM DATE: 10/20/18 AGE: 48 : 66 SEX: F ROOM/BED: D.2208 AUTHOR: DENI BRAN PHYSICIAN: REFERRING PHYSICIAN: ROLANDA WARD MD DATE OF SERVICE: 11/03/18 Discharge Plan Patient Name: MELA BOLDEN Facility: [facility]:[place] : 1970 Planned Disposition: Home with Home Health Anticipated Discharge Date: Discharge Date: Expected LOS: Initial Reviewer: [email or web address] Initial Review Date: 10/18/2018 Generated: 11/03/18 11:40 am Comments DCP- Discharge Planning Updated by [email or web address]: Adelaida Krueger on 11/03/18 9:[address] called Easy admit spoke with Ophelia opened case back up waiting on MRI before we can transfer DCP- Discharge Planning Updated by [email or web address]: Adelaida Krueger on 11/02/18 11:[address] EASY ADMIT CALLED AND SPOKE WITH RAMSES, REPORT GIVEN AND FAXED CLINICAL TO TRANSFER TO [facility] CM WILL CONTINUE TO FOLLOW AND ASSIST WITH DC PLANNING DCP- Discharge Planning Updated by [email or web address]: Adelaida Krueger on 10/20/18 2:[address] Patient Name: MELA BOLDEN Admission Status: ER Accout number: [id number] Admission Date: 10-18-2018 : 1970 Admission Diagnosis: Attending: ROLANDA WARD Current LOS: 2 Anticipated DC Date: Planned Disposition: Home with Home Health Primary Insurance: [facility] Discharge Planning Comments: CM met with patient to assess discharge planning needs. Patient currently lives independently in a [facility] where there are 28 steps. Her mother will be the one to take her home and is there if she needs help. She is current with [facility] home health with nursing and PT. She has a bedside commode, walker, wheelchair, shower chair at home. CM will continue to follow and assist with dc planning as needed Family Assessment Worker: Adelaida Krueger DCPIA - Discharge Planning Initial Assessment Updated by [email or web address]: Adelaida Krueger on 10/20/18 3:12 pm * Is the patient Alert and Oriented? Yes * How many steps to enter\exit or inside your home? 28 * PCP Ariana Barry APN/ Vitaly * Pharmacy [facility] * Preadmission Environment Home Alone * ADLs Independent * Equipment Bedside Commode Rolling Walker Shower Chair Walker Wheelchair * List name and contact numbers for known caregivers / representatives who currently or will assist patient after discharge: ARIADNA (MOTHER) [phone] * Verbal permission to speak to the caregivers and representatives has been obtained from the patient. Yes * Community resources currently utilized Home Health * Please name any agencies selected above. [facility] * Additional services required to return to the preadmission environment? No * Can the patient safely return to the preadmission environment? Yes * Has this patient been hospitalized within the prior 30 days at any hospital? Yes Last DP export: 11/02/18 11:52 Patient Name: MELA BOLDEN Page 31216 at 1041 All edits/amendments must be made on the electronic document DICTATION DATE: 11/03/18 1040 TELECOMMUNICATIONS ANALYST: RIGOBERTO 11/03/18 1040 RPT#: [id number] DC DATE: STATUS: ADM IN [facility] [address] [place] [address] END OF REPORT
--- NOTE | ~2018-10-18 | MORECARE ---
CASE MANAGEMENT DISCHARGE SUMMARY PATIENT: MELA BOLDEN UNIT: [id number] ADM DATE: 10/20/18 AGE: 48 : 66 SEX: F ROOM/BED: D.2208 AUTHOR: DENI BRAN PHYSICIAN: REFERRING PHYSICIAN: ROLANDA WARD MD DATE OF SERVICE: 10/30/18 Discharge Plan Patient Name: MELA BOLDEN Facility: [facility]:[place] : 1970 Planned Disposition: Home with Home Health Anticipated Discharge Date: Discharge Date: Expected LOS: Initial Reviewer: [email or web address] Initial Review Date: 10/18/2018 Generated: 10/30/18 9:59 am Comments DCP- Discharge Planning Updated by [email or web address]: Adelaida Krueger on 10/20/18 2:[address] Patient Name: MELA BOLDEN Admission Status: ER Accout number: [id number] Admission Date: 10-18-2018 : 1970 Admission Diagnosis: Attending: ROLANDA WARD Current LOS: 2 Anticipated DC Date: Planned Disposition: Home with Home Health Primary Insurance: [facility] Discharge Planning Comments: CM met with patient to assess discharge planning needs. Patient currently lives independently in a [facility] where there are 28 steps. Her mother will be the one to take her home and is there if she needs help. She is current with [facility] with nursing and PT. She has a bedside commode, walker, wheelchair, shower chair at home. CM will continue to follow and assist with dc planning as needed Provisioning Analyst: Adelaida Krueger DCPIA - Discharge Planning Initial Assessment Updated by [email or web address]: Adelaida Krueger on 10/20/18 3:12 pm * Is the patient Alert and Oriented? Yes * How many steps to enter\exit or inside your home? 28 * PCP Ariana Barry APN/ Vitaly * Pharmacy [facility] [address] * Preadmission Environment Home Alone * ADLs Independent * Equipment Bedside Commode Rolling Walker Shower Chair Walker Wheelchair * List name and contact numbers for known caregivers / representatives who currently or will assist patient after discharge: ARIADNA (MOTHER) [phone] * Verbal permission to speak to the caregivers and representatives has been obtained from the patient. Yes * Community resources currently utilized Home Health * Please name any agencies selected above. [facility] * Additional services required to return to the preadmission environment? No * Can the patient safely return to the preadmission environment? Yes * Has this patient been hospitalized within the prior 30 days at any hospital? Yes Last DP export: 10/20/18 2:28 Patient Name: MELA BOLDEN Page 58856 at 0859 All edits/amendments must be made on the electronic document DICTATION DATE: 10/30/18857 BUCKET HOOKER: RIGOBERTO 10/30/18857 RPT#: [id number] DC DATE: STATUS: ADM IN [facility] [address] [place] [address] END OF REPORT
--- NOTE | ~2018-10-18 | MORECARE ---
CASE MANAGEMENT DISCHARGE SUMMARY PATIENT: MELA BOLDEN UNIT: [id number] ADM DATE: 10/20/18 AGE: 48 : 66 SEX: F ROOM/BED: D.2208 AUTHOR: DENI BRAN PHYSICIAN: REFERRING PHYSICIAN: ROLANDA WARD MD DATE OF SERVICE: 11/02/18 Discharge Plan Patient Name: MEAL BOLDEN Facility: [facility]:[place] : 1970 Planned Disposition: Home with Home Health Anticipated Discharge Date: Discharge Date: Expected LOS: Initial Reviewer: [email or web address] Initial Review Date: 10/18/2018 Generated: 11/02/18 1:51 pm Comments DCP- Discharge Planning Updated by [email or web address]: Adelaida Krueger on 11/02/18 11:[address] EASY ADMIT CALLED AND SPOKE WITH RAMSES, REPORT GIVEN AND FAXED CLINICAL TO TRANSFER TO [facility] CM WILL CONTINUE TO FOLLOW AND ASSIST WITH DC PLANNING DCP- Discharge Planning Updated by [email or web address]: Adelaida Krueger on 10/20/18 2:[address] Patient Name: MELA BOLDEN Admission Status: ER Accout number: [id number] Admission Date: 10-18-2018 : 1970 Admission Diagnosis: Attending: ROLANDA WARD Current LOS: 2 Anticipated DC Date: Planned Disposition: Home with Home Health Primary Insurance: [facility] Discharge Planning Comments: CM met with patient to assess discharge planning needs. Patient currently lives independently in a [facility] where there are 28 steps. Her mother will be the one to take her home and is there if she needs help. She is current with [facility] with nursing and PT. She has a bedside commode, walker, wheelchair, shower chair at home. CM will continue to follow and assist with dc planning as needed Castings Drafter: Adelaida Krueger DCPIA - Discharge Planning Initial Assessment Updated by [email or web address]: Adelaida Krueger on 10/20/18 3:12 pm * Is the patient Alert and Oriented? Yes * How many steps to enter\exit or inside your home? 28 * PCP Ariana Barry APN/ Vitaly * Pharmacy [facility] * Preadmission Environment Home Alone * ADLs Independent * Equipment Bedside Commode Rolling Walker Shower Chair Walker Wheelchair * List name and contact numbers for known caregivers / representatives who currently or will assist patient after discharge: ARIADNA (MOTHER) [phone] * Verbal permission to speak to the caregivers and representatives has been obtained from the patient. Yes * Community resources currently utilized Home Health * Please name any agencies selected above. [facility] * Additional services required to return to the preadmission environment? No * Can the patient safely return to the preadmission environment? Yes * Has this patient been hospitalized within the prior 30 days at any hospital? Yes Last DP export: 10/30/18 7:59 a Patient Name: MELA BOLDEN Page 82611 at 1252 All edits/amendments must be made on the electronic document DICTATION DATE: 11/02/18 125 WELFARE ADVISER: RIGOBERTO 11/02/18 1251 RPT#: [id number] DC DATE: STATUS: ADM IN [facility] [address] [place] [address] END OF REPORT
--- NOTE | ~2018-10-18 | MORECARE ---
CASE MANAGEMENT DISCHARGE SUMMARY PATIENT: MELA BOLDEN UNIT: [id number] ADM DATE: 10/18/18 AGE: 48 : 66 SEX: F ROOM/BED: D.2208 AUTHOR: DENI BRAN PHYSICIAN: REFERRING PHYSICIAN: ROLANDA WARD MD DATE OF SERVICE: 10/20/18 Discharge Plan Patient Name: MELA BOLDEN Facility: [facility]:[place] : 1970 Planned Disposition: Home with Home Health Anticipated Discharge Date: Discharge Date: Expected LOS: Initial Reviewer: [email or web address] Initial Review Date: 10/18/2018 Generated: 10/20/18 4:11 pm Patient Name: MELA BOLDEN Page 35878 at 1511 All edits/amendments must be made on the electronic document DICTATION DATE: 10/20/18 151 BUSINESS JOB TITLES: RIGOBERTO 10/20/18 1510 RPT#: [id number] DC DATE: STATUS: ADM IN [facility] [address] [place] [address] END OF REPORT
--- NOTE | ~2018-10-18 | MORECARE ---
CASE MANAGEMENT DISCHARGE SUMMARY PATIENT: MELA BOLDEN UNIT: [id number] ADM DATE: 10/18/18 AGE: 48 : [birth year] SEX: F ROOM/BED: D.2208 AUTHOR: YINADOC PHYSICIAN: REFERRING PHYSICIAN: ROLANDA WARD MD DATE OF SERVICE: 10/20/18 Discharge Plan Patient Name: MELA BOLDEN Facility: [facility]:[place] : 1970 Planned Disposition: Home with Home Health Anticipated Discharge Date: Discharge Date: Expected LOS: Initial Reviewer: [email or web address] Initial Review Date: 10/18/2018 Generated: 10/20/18 4:27 pm Comments DCP- Discharge Planning Updated by [email or web address]: Adelaida Krueger on 10/20/18 2:[address] Patient Name: MELA BOLDEN Admission Status: ER Accout number: [id number] Admission Date: 10-18-2018 : 1970 Admission Diagnosis: Attending: ROLANDA WARD Current LOS: 2 Anticipated DC Date: Planned Disposition: Home with Home Health Primary Insurance: [facility] Discharge Planning Comments: CM met with patient to assess discharge planning needs. Patient currently lives independently in a [facility] where there are 28 steps. Her mother will be the one to take her home and is there if she needs help. She is current with [facility] with nursing and PT. She has a bedside commode, walker, wheelchair, shower chair at home. CM will continue to follow and assist with dc planning as needed Yard Goods Salesperson: Adelaida Krueger DCPIA - Discharge Planning Initial Assessment Updated by [email or web address]: Adelaida Krueger on 10/20/18 3:12 pm * Is the patient Alert and Oriented? Yes * How many steps to enter\exit or inside your home? 28 * PCP Ariana Barry APN/ Vitaly * Pharmacy [facility] [address] * Preadmission Environment Home Alone * ADLs Independent * Equipment Bedside Commode Rolling Walker Shower Chair Walker Wheelchair * List name and contact numbers for known caregivers / representatives who currently or will assist patient after discharge: ARIADNA (MOTHER) [phone] * Verbal permission to speak to the caregivers and representatives has been obtained from the patient. Yes * Community resources currently utilized Home Health * Please name any agencies selected above. [facility] * Additional services required to return to the preadmission environment? No * Can the patient safely return to the preadmission environment? Yes * Has this patient been hospitalized within the prior 30 days at any hospital? Yes Last DP export: 10/20/18 2:19 Patient Name: MELA BOLDEN Page 98458 at 1528 All edits/amendments must be made on the electronic document DICTATION DATE: 10/20/181526 PSYCHIATRIC ASSISTANT: RIGOBERTO 10/20/181526 RPT#: [id number] DC DATE: STATUS: ADM IN [facility] [address] [place] [address] END OF REPORT
--- NOTE | ~2018-10-18 | MORECARE ---
CASE MANAGEMENT DISCHARGE SUMMARY PATIENT: MELA BOLDEN UNIT: [id number] ADM DATE: 10/18/18 AGE: 48 : [birth year] SEX: F ROOM/BED: D.2208 AUTHOR: DENI BRAN PHYSICIAN: REFERRING PHYSICIAN: ROLANDA WARD MD DATE OF SERVICE: 10/20/18 Discharge Plan Patient Name: MELA BOLDEN Facility: [facility]:[place] : 1970 Planned Disposition: Home with Home Health Anticipated Discharge Date: Discharge Date: Expected LOS: Initial Reviewer: [email or web address] Initial Review Date: 10/18/2018 Generated: 10/20/18 4:19 pm DCPIA - Discharge Planning Initial Assessment Updated by [email or web address]: Adelaida Krueger on 10/20/18 3:12 pm * Is the patient Alert and Oriented? Yes * How many steps to enter\exit or inside your home? 28 * PCP Ariana Barry APN/ Vitaly * Pharmacy [facility] on [place] * Preadmission Environment Home Alone * ADLs Independent * Equipment Bedside Commode Rolling Walker Shower Chair Walker Wheelchair * List name and contact numbers for known caregivers / representatives who currently or will assist patient after discharge: ARIADNA (MOTHER) [phone] * Verbal permission to speak to the caregivers and representatives has been obtained from the patient. Yes * Community resources currently utilized Home Health * Please name any agencies selected above. [facility] * Additional services required to return to the preadmission environment? No * Can the patient safely return to the preadmission environment? Yes * Has this patient been hospitalized within the prior 30 days at any hospital? Yes Last DP export: 10/20/18 2:11 Patient Name: MELA BOLDEN Page [id number] at 1519 All edits/amendments must be made on the electronic document DICTATION DATE: 10/20/181518 ENVIRONMENTAL OFFICER: RIGOBERTO 10/20/181518 RPT#: [id number] DC DATE: STATUS: ADM IN [facility] [address] [place] [address] END OF REPORT
--- NOTE | ~2018-10-18 | MORECARE ---
CASE MANAGEMENT DISCHARGE SUMMARY PATIENT: MELA BOLDEN UNIT: [id number] ADM DATE: 10/20/18 AGE: 48 : [birth year] SEX: F ROOM/BED: D.2208 AUTHOR: DENI BRAN PHYSICIAN: REFERRING PHYSICIAN: ROLANDA WARD MD DATE OF SERVICE: 11/04/18 Discharge Plan Patient Name: MELA BOLDEN Facility: [facility]:[place] : 1970 Planned Disposition: Home with Home Health Anticipated Discharge Date: Discharge Date: Expected LOS: Initial Reviewer: [email or web address] Initial Review Date: 10/18/2018 Generated: 11/04/18 8:49 am Comments DCP- Discharge Planning Updated by [email or web address]: Adelaida Krueger on 11/04/18 6:[address] spoke with Ophelia with [facility]. I faxed most recent MRI and VS with Lab. She will get back with me with an update DCP- Discharge Planning Updated by [email or web address]: Adelaida Krueger on 11/03/18 9:[address] called [facility] spoke with Ophelia opened case back up waiting on MRI before we can transfer DCP- Discharge Planning Updated by [email or web address]: Adelaida Krueger on 11/02/18 11:[address] [facility] CALLED AND SPOKE WITH RAMSES, REPORT GIVEN AND FAXED CLINICAL TO TRANSFER TO [facility] CM WILL CONTINUE TO FOLLOW AND ASSIST WITH DC PLANNING DCP- Discharge Planning Updated by [email or web address]: Adelaida Krueger on 10/20/18 2:[address] Patient Name: MELA BOLDEN Admission Status: ER Accout number: [id number] Admission Date: 10-18-2018 : 1970 Admission Diagnosis: Attending: ROLANDA WARD Current LOS: 2 Anticipated DC Date: Planned Disposition: Home with Home Health Primary Insurance: [facility] Discharge Planning Comments: CM met with patient to assess discharge planning needs. Patient currently lives independently in a [facility] where there are 28 steps. Her mother will be the one to take her home and is there if she needs help. She is current with [facility] home health with nursing and PT. She has a bedside commode, walker, wheelchair, shower chair at home. CM will continue to follow and assist with dc planning as needed Cushion Spring Assembler: Adelaida Krueger DCPIA - Discharge Planning Initial Assessment Updated by [email or web address]: Adelaida Krueger on 10/20/18 3:12 pm * Is the patient Alert and Oriented? Yes * How many steps to enter\exit or inside your home? 28 * PCP Ariana Barry APN/ Vitaly * Pharmacy [facility] on [address] * Preadmission Environment Home Alone * ADLs Independent * Equipment Bedside Commode Rolling Walker Shower Chair Walker Wheelchair * List name and contact numbers for known caregivers / representatives who currently or will assist patient after discharge: ARIADNA (MOTHER) [phone] * Verbal permission to speak to the caregivers and representatives has been obtained from the patient. Yes * Community resources currently utilized Home Health * Please name any agencies selected above. [facility] * Additional services required to return to the preadmission environment? No * Can the patient safely return to the preadmission environment? Yes * Has this patient been hospitalized within the prior 30 days at any hospital? Yes Last DP export: 11/03/18 9:40 Patient Name: MELA BOLDEN Page [id number] at 0750 All edits/amendments must be made on the electronic document DICTATION DATE: 11/04/18748 TALENT DEVELOPMENT MANAGER: RIGOBERTO 11/04/1849 RPT#: [id number] DC DATE: STATUS: ADM IN [facility] [address] [place] [address] END OF REPORT
[2018-10-18 17:19] LABS: BASOPHILS 0.3 % (0-2); EOSINOPHILS 6.1 % (0-7); HEMATOCRIT 36.1 % (36.0-48.0); HEMOGLOBIN 11.4 g/dL (12-16); IMMATURE GRANULOCYTES 0.3 % (0-5); LYMPHOCYTES 27.7 % (15-50); MCH 26.4 pg (26.0-34.0); MCHC 31.6 g/dL (31.0-37.0); MCV 83.6 fL (80.0-100.0); MEAN PLATELET VOLUME 10.5 fL (7.4-10.4); MONOCYTES 7.7 % (2-11); NEUTROPHILS 57.9 % (40-80); PLATELET COUNT 165 10x3/uL (130-400); RBC 4.32 10x6/uL (4.00-5.40); RDW 14.8 % (11.5-14.5); WBC 3.8 10x3/uL (4.8-10.8)
[2018-10-18 17:29] LABS: APPEARANCE CLEAR (CLEAR); BILIRUBIN NEGATIVE (NEGATIVE); COLOR YELLOW (YELLOW); GLUCOSE NEGATIVE (NEGATIVE); KETONE NEGATIVE (NEGATIVE); NITRITE NEGATIVE (NEGATIVE); PROTEIN NEGATIVE (NEGATIVE); UROBILINOGEN NORMAL (NORMAL)
[2018-10-18 17:36] LABS: ALBUMIN 3.8 g/dL (3.4-5.0); ALKALINE PHOSPHATASE 118 U/L (46-116); ALT (SGPT) 37 U/L (10-68); BILIRUBIN - TOTAL 0.51 mg/dL (0.2-1.3); CALC OSMOLALITY 277 mosm/kg (275-300); CALCIUM 9.6 mg/dL (8.5-10.1); CARBON DIOXIDE 25.8 mmol/L (21.0-32.0); CHLORIDE - SERUM 103 mmol/L (98-107); CREATININE - SERUM 0.7 mg/dL (0.6-1.3); GLUCOSE 94 mg/dL (74-106); PROTEIN - SERUM 7.8 g/dL (6.4-8.2); SODIUM 139 mmol/L (136-145); UREA NITROGEN 12 mg/dL (7-18); eGFR NON AFRICAN AMERICAN > 90 mL/min (90-120)
[2018-10-18 17:50] VITALS: BP 134/89
[2018-10-18] MEDS ORDERED: ESKALITH CR450 M1 (20:29)
[2018-10-18] MEDS ORDERED: ESKALITH CR450 M1 PO (20:30)
[2018-10-18 23:59] VITALS: BP 138/76; BMI 34.1
[2018-10-19] VITALS: BP 128/75
[2018-10-19 05:45] VITALS: BP 117/70
[2018-10-19 08:01] VITALS: BP 149/94
[2018-10-19 12:32] VITALS: BP 134/79
[2018-10-19 12:32] LABS: BASOPHILS 0 % (0-2); EOSINOPHILS 0 % (0-7); HEMATOCRIT 33.7 % (36.0-48.0); HEMOGLOBIN 10.6 g/dL (12-16); IMMATURE GRANULOCYTES 0.4 % (0-5); LYMPHOCYTES 14.8 % (15-50); MCH 26.5 pg (26.0-34.0); MCHC 31.5 g/dL (31.0-37.0); MCV 84.3 fL (80.0-100.0); MEAN PLATELET VOLUME 10.3 fL (7.4-10.4); MONOCYTES 1.7 % (2-11); NEUTROPHILS 83.1 % (40-80); PLATELET COUNT 183 10x3/uL (130-400); RDW 14.9 % (11.5-14.5); WBC 4.7 10x3/uL (4.8-10.8)
[2018-10-19 12:36] LABS: ALBUMIN 3.5 g/dL (3.4-5.0); ALKALINE PHOSPHATASE 104 U/L (46-116); ALT (SGPT) 30 U/L (10-68); BILIRUBIN - TOTAL 0.41 mg/dL (0.2-1.3); CALCIUM 9.8 mg/dL (8.5-10.1); CARBON DIOXIDE 26.3 mmol/L (21.0-32.0); CHLORIDE - SERUM 101 mmol/L (98-107); CREATININE - SERUM 0.8 mg/dL (0.6-1.3); PROTEIN - SERUM 7.4 g/dL (6.4-8.2); SODIUM 137 mmol/L (136-145); eGFR NON AFRICAN AMERICAN 80 mL/min (90-120)
[2018-10-19 12:37] LABS: CALC OSMOLALITY 281 mosm/kg (275-300); GLUCOSE 202 mg/dL (74-106); UREA NITROGEN 18 mg/dL (7-18)
[2018-10-19 13:03] VITALS: Ht 172.7 cm; Wt 101.8 kg
[2018-10-19 15:58] VITALS: BP 121/76
[2018-10-19 21:21] VITALS: BP 131/74
[2018-10-20 00:35] VITALS: BP 130/80
[2018-10-20 06:35] VITALS: BP 118/76
[2018-10-20 07:08] LABS: BASOPHILS 0.1 % (0-2); EOSINOPHILS 0.3 % (0-7); HEMATOCRIT 33.5 % (36.0-48.0); HEMOGLOBIN 10.5 g/dL (12-16); IMMATURE GRANULOCYTES 0.5 % (0-5); LYMPHOCYTES 26.3 % (15-50); MCH 26.6 pg (26.0-34.0); MCHC 31.3 g/dL (31.0-37.0); MEAN PLATELET VOLUME 10.5 fL (7.4-10.4); MONOCYTES 8.6 % (2-11); NEUTROPHILS 64.2 % (40-80); PLATELET COUNT 176 10x3/uL (130-400); RBC 3.94 10x6/uL (4.00-5.40); RDW 15.2 % (11.5-14.5)
[2018-10-20 07:14] LABS: ALBUMIN 3.7 g/dL (3.4-5.0); ALKALINE PHOSPHATASE 102 U/L (46-116); ALT (SGPT) 33 U/L (10-68); BILIRUBIN - TOTAL 0.25 mg/dL (0.2-1.3); CALCIUM 9.5 mg/dL (8.5-10.1); CARBON DIOXIDE 27.9 mmol/L (21.0-32.0); CHLORIDE - SERUM 104 mmol/L (98-107); CREATININE - SERUM 0.7 mg/dL (0.6-1.3); POTASSIUM - SERUM 3.9 mmol/L (3.5-5.1); PROTEIN - SERUM 6.9 g/dL (6.4-8.2); SODIUM 139 mmol/L (136-145); eGFR NON AFRICAN AMERICAN > 90 mL/min (90-120)
[2018-10-20 07:17] LABS: CALC OSMOLALITY 282 mosm/kg (275-300); GLUCOSE 113 mg/dL (74-106); UREA NITROGEN 24 mg/dL (7-18)
[2018-10-20 07:18] LABS: WBC 7.5 10x3/uL (4.8-10.8)
[2018-10-20 08:36] VITALS: BP 129/88
[2018-10-20 11:46] VITALS: BP 123/76
[2018-10-20 17:52] VITALS: BP 127/62
[2018-10-20 20:00] VITALS: BP 128/75
[2018-10-21 04:00] VITALS: BP 90/60
[2018-10-21 04:50] LABS: BASOPHILS 0.2 % (0-2); HEMATOCRIT 34.4 % (36.0-48.0); HEMOGLOBIN 10.4 g/dL (12-16); IMMATURE GRANULOCYTES 0.4 % (0-5); LYMPHOCYTES 39.4 % (15-50); MCH 26.3 pg (26.0-34.0); MCHC 30.2 g/dL (31.0-37.0); MCV 86.9 fL (80.0-100.0); MEAN PLATELET VOLUME 10.7 fL (7.4-10.4); MONOCYTES 8.8 % (2-11); NEUTROPHILS 48.2 % (40-80); PLATELET COUNT 165 10x3/uL (130-400); RBC 3.96 10x6/uL (4.00-5.40); RDW 15.4 % (11.5-14.5)
[2018-10-21 04:54] LABS: WBC 4.7 10x3/uL (4.8-10.8)
[2018-10-21 05:11] LABS: ALBUMIN 3.4 g/dL (3.4-5.0); ALKALINE PHOSPHATASE 94 U/L (46-116); ALT (SGPT) 36 U/L (10-68); BILIRUBIN - TOTAL 0.26 mg/dL (0.2-1.3); CALC OSMOLALITY 278 mosm/kg (275-300); CALCIUM 9.4 mg/dL (8.5-10.1); CARBON DIOXIDE 29.1 mmol/L (21.0-32.0); CHLORIDE - SERUM 104 mmol/L (98-107); CREATININE - SERUM 0.8 mg/dL (0.6-1.3); GLUCOSE 106 mg/dL (74-106); POTASSIUM - SERUM 4.3 mmol/L (3.5-5.1); PROTEIN - SERUM 6.8 g/dL (6.4-8.2); SODIUM 138 mmol/L (136-145); UREA NITROGEN 20 mg/dL (7-18); eGFR NON AFRICAN AMERICAN 80 mL/min (90-120)
[2018-10-21 08:30] VITALS: BP 114/68
[2018-10-21 08:53] VITALS: BP 105/59
[2018-10-21 13:26] VITALS: BP 112/59
[2018-10-21 16:08] VITALS: BP 121/61
[2018-10-22 01:37] VITALS: BP 138/72
[2018-10-22 04:59] LABS: BASOPHILS 0.2 % (0-2); EOSINOPHILS 5.4 % (0-7); HEMATOCRIT 36.8 % (36.0-48.0); HEMOGLOBIN 11.3 g/dL (12-16); IMMATURE GRANULOCYTES 0.6 % (0-5); LYMPHOCYTES 38.3 % (15-50); MCH 26.5 pg (26.0-34.0); MCHC 30.7 g/dL (31.0-37.0); MCV 86.4 fL (80.0-100.0); MEAN PLATELET VOLUME 10.8 fL (7.4-10.4); MONOCYTES 7.9 % (2-11); NEUTROPHILS 47.6 % (40-80); PLATELET COUNT 172 10x3/uL (130-400); RBC 4.26 10x6/uL (4.00-5.40); RDW 15.4 % (11.5-14.5); WBC 4.8 10x3/uL (4.8-10.8)
[2018-10-22 05:22] LABS: ALBUMIN 3.5 g/dL (3.4-5.0); ALKALINE PHOSPHATASE 103 U/L (46-116); ALT (SGPT) 42 U/L (10-68); BILIRUBIN - TOTAL 0.34 mg/dL (0.2-1.3); CALC OSMOLALITY 281 mosm/kg (275-300); CALCIUM 9.7 mg/dL (8.5-10.1); CARBON DIOXIDE 32.8 mmol/L (21.0-32.0); CHLORIDE - SERUM 102 mmol/L (98-107); CREATININE - SERUM 0.7 mg/dL (0.6-1.3); GLUCOSE 94 mg/dL (74-106); POTASSIUM - SERUM 3.7 mmol/L (3.5-5.1); PROTEIN - SERUM 7.2 g/dL (6.4-8.2); SODIUM 141 mmol/L (136-145); eGFR NON AFRICAN AMERICAN > 90 mL/min (90-120)
[2018-10-22 05:31] LABS: UREA NITROGEN 14 mg/dL (7-18)
[2018-10-22 06:06] VITALS: BP 126/78
[2018-10-22 09:14] VITALS: BP 129/79
[2018-10-22 12:41] VITALS: BP 110/60
[2018-10-22 16:48] VITALS: BP 99/54
[2018-10-22 20:00] VITALS: BP 115/63
[2018-10-23] VITALS: BP 100/61
[2018-10-23 03:52] LABS: BASOPHILS 0.2 % (0-2); EOSINOPHILS 5.2 % (0-7); HEMATOCRIT 35.4 % (36.0-48.0); HEMOGLOBIN 11.1 g/dL (12-16); IMMATURE GRANULOCYTES 0.2 % (0-5); LYMPHOCYTES 27.3 % (15-50); MCH 26.5 pg (26.0-34.0); MCHC 31.4 g/dL (31.0-37.0); MCV 84.5 fL (80.0-100.0); MEAN PLATELET VOLUME 10.1 fL (7.4-10.4); MONOCYTES 7.9 % (2-11); NEUTROPHILS 59.2 % (40-80); PLATELET COUNT 163 10x3/uL (130-400); RBC 4.19 10x6/uL (4.00-5.40); RDW 15.1 % (11.5-14.5); WBC 5.6 10x3/uL (4.8-10.8)
[2018-10-23 04:00] VITALS: BP 110/58
[2018-10-23 04:08] LABS: ALBUMIN 3.5 g/dL (3.4-5.0); ALKALINE PHOSPHATASE 98 U/L (46-116); ALT (SGPT) 37 U/L (10-68); BILIRUBIN - TOTAL 0.55 mg/dL (0.2-1.3); CALC OSMOLALITY 270 mosm/kg (275-300); CALCIUM 9.3 mg/dL (8.5-10.1); CARBON DIOXIDE 27.7 mmol/L (21.0-32.0); CHLORIDE - SERUM 102 mmol/L (98-107); CREATININE - SERUM 0.8 mg/dL (0.6-1.3); GLUCOSE 101 mg/dL (74-106); POTASSIUM - SERUM 3.9 mmol/L (3.5-5.1); PROTEIN - SERUM 7.2 g/dL (6.4-8.2); SODIUM 136 mmol/L (136-145); UREA NITROGEN 11 mg/dL (7-18); eGFR NON AFRICAN AMERICAN 80 mL/min (90-120)
[2018-10-23 09:15] VITALS: BP 93/36
[2018-10-23 12:39] VITALS: BP 101/53
[2018-10-23 16:33] VITALS: BP 104/44
[2018-10-23 20:08] VITALS: BP 151/61
[2018-10-24] VITALS: BP 128/64
[2018-10-24 04:00] VITALS: BP 96/70
[2018-10-24 06:12] LABS: BASOPHILS 0.2 % (0-2); EOSINOPHILS 3.2 % (0-7); HEMATOCRIT 36.6 % (36.0-48.0); HEMOGLOBIN 11.4 g/dL (12-16); IMMATURE GRANULOCYTES 0.4 % (0-5); LYMPHOCYTES 27.9 % (15-50); MCH 26.2 pg (26.0-34.0); MCHC 31.1 g/dL (31.0-37.0); MCV 84.1 fL (80.0-100.0); NEUTROPHILS 60.3 % (40-80); PLATELET COUNT 191 10x3/uL (130-400); RBC 4.35 10x6/uL (4.00-5.40); WBC 5.6 10x3/uL (4.8-10.8)
[2018-10-24 06:49] LABS: ALBUMIN 3.5 g/dL (3.4-5.0); ALKALINE PHOSPHATASE 99 U/L (46-116); ALT (SGPT) 39 U/L (10-68); BILIRUBIN - TOTAL 0.59 mg/dL (0.2-1.3); CALC OSMOLALITY 276 mosm/kg (275-300); CALCIUM 9.6 mg/dL (8.5-10.1); CARBON DIOXIDE 25.6 mmol/L (21.0-32.0); CHLORIDE - SERUM 103 mmol/L (98-107); CREATININE - SERUM 0.6 mg/dL (0.6-1.3); GLUCOSE 116 mg/dL (74-106); POTASSIUM - SERUM 4.1 mmol/L (3.5-5.1); PROTEIN - SERUM 7.4 g/dL (6.4-8.2); SODIUM 138 mmol/L (136-145); UREA NITROGEN 13 mg/dL (7-18); eGFR NON AFRICAN AMERICAN > 90 mL/min (90-120)
[2018-10-24 08:51] VITALS: BP 96/60
[2018-10-24 12:53] VITALS: BP 121/80
[2018-10-24 16:25] VITALS: BP 104/58
[2018-10-24 20:00] VITALS: BP 140/71
[2018-10-25 04:00] VITALS: BP 125/80
[2018-10-25 05:33] LABS: BASOPHILS 0.2 % (0-2); EOSINOPHILS 3.2 % (0-7); HEMATOCRIT 36.3 % (36.0-48.0); HEMOGLOBIN 11.2 g/dL (12-16); IMMATURE GRANULOCYTES 0.2 % (0-5); LYMPHOCYTES 31.5 % (15-50); MCH 26.4 pg (26.0-34.0); MCHC 30.9 g/dL (31.0-37.0); MCV 85.4 fL (80.0-100.0); MEAN PLATELET VOLUME 10.8 fL (7.4-10.4); NEUTROPHILS 53.9 % (40-80); PLATELET COUNT 191 10x3/uL (130-400); RBC 4.25 10x6/uL (4.00-5.40); WBC 5.6 10x3/uL (4.8-10.8)
[2018-10-25 05:47] LABS: ALBUMIN 3.5 g/dL (3.4-5.0); ALKALINE PHOSPHATASE 98 U/L (46-116); ALT (SGPT) 35 U/L (10-68); BILIRUBIN - TOTAL 0.36 mg/dL (0.2-1.3); CALC OSMOLALITY 278 mosm/kg (275-300); CALCIUM 9.5 mg/dL (8.5-10.1); CARBON DIOXIDE 27.3 mmol/L (21.0-32.0); CHLORIDE - SERUM 105 mmol/L (98-107); CREATININE - SERUM 0.6 mg/dL (0.6-1.3); GLUCOSE 116 mg/dL (74-106); POTASSIUM - SERUM 3.7 mmol/L (3.5-5.1); PROTEIN - SERUM 7.1 g/dL (6.4-8.2); SODIUM 140 mmol/L (136-145); UREA NITROGEN 11 mg/dL (7-18); eGFR NON AFRICAN AMERICAN > 90 mL/min (90-120)
[2018-10-25 09:31] VITALS: BP 117/61
[2018-10-25 12:37] VITALS: BP 146/70
[2018-10-25 17:28] VITALS: BP 141/87
[2018-10-25 20:00] VITALS: BP 121/667
[2018-10-26] VITALS: BP 114/75
[2018-10-26 04:00] VITALS: BP 122/71
[2018-10-26 04:33] LABS: BASOPHILS 0.3 % (0-2); HEMATOCRIT 37.3 % (36.0-48.0); HEMOGLOBIN 11.5 g/dL (12-16); IMMATURE GRANULOCYTES 0.2 % (0-5); LYMPHOCYTES 27.6 % (15-50); MCH 26.3 pg (26.0-34.0); MCHC 30.8 g/dL (31.0-37.0); MCV 85.4 fL (80.0-100.0); MEAN PLATELET VOLUME 10.4 fL (7.4-10.4); MONOCYTES 11.1 % (2-11); NEUTROPHILS 57.8 % (40-80); PLATELET COUNT 174 10x3/uL (130-400); RBC 4.37 10x6/uL (4.00-5.40); RDW 15.1 % (11.5-14.5); WBC 5.8 10x3/uL (4.8-10.8)
[2018-10-26 05:13] LABS: ALBUMIN 3.4 g/dL (3.4-5.0); ALKALINE PHOSPHATASE 101 U/L (46-116); ALT (SGPT) 31 U/L (10-68); CALC OSMOLALITY 281 mosm/kg (275-300); CALCIUM 9.5 mg/dL (8.5-10.1); CARBON DIOXIDE 29.1 mmol/L (21.0-32.0); CHLORIDE - SERUM 104 mmol/L (98-107); CREATININE - SERUM 0.8 mg/dL (0.6-1.3); GLUCOSE 116 mg/dL (74-106); POTASSIUM - SERUM 3.9 mmol/L (3.5-5.1); PROTEIN - SERUM 7.2 g/dL (6.4-8.2); SODIUM 142 mmol/L (136-145); UREA NITROGEN 8 mg/dL (7-18); eGFR NON AFRICAN AMERICAN 80 mL/min (90-120)
[2018-10-26 08:30] VITALS: BP 134/62
[2018-10-26 13:18] VITALS: BP 106/61
[2018-10-26 16:38] VITALS: BP 124/62
[2018-10-26 20:00] VITALS: BP 103/57
[2018-10-27 05:09] LABS: BASOPHILS 0.2 % (0-2); EOSINOPHILS 4.3 % (0-7); HEMATOCRIT 38.3 % (36.0-48.0); HEMOGLOBIN 11.6 g/dL (12-16); IMMATURE GRANULOCYTES 0.4 % (0-5); LYMPHOCYTES 29.7 % (15-50); MCH 26.1 pg (26.0-34.0); MCHC 30.3 g/dL (31.0-37.0); MCV 86.1 fL (80.0-100.0); MEAN PLATELET VOLUME 10.7 fL (7.4-10.4); MONOCYTES 12.3 % (2-11); NEUTROPHILS 53.1 % (40-80); PLATELET COUNT 196 10x3/uL (130-400); RBC 4.45 10x6/uL (4.00-5.40); RDW 14.9 % (11.5-14.5); WBC 5.6 10x3/uL (4.8-10.8)
[2018-10-27 05:47] LABS: ALBUMIN 3.4 g/dL (3.4-5.0); ALKALINE PHOSPHATASE 103 U/L (46-116); ALT (SGPT) 37 U/L (10-68); BILIRUBIN - TOTAL 0.34 mg/dL (0.2-1.3); CALC OSMOLALITY 276 mosm/kg (275-300); CALCIUM 9.5 mg/dL (8.5-10.1); CARBON DIOXIDE 30.5 mmol/L (21.0-32.0); CHLORIDE - SERUM 103 mmol/L (98-107); CREATININE - SERUM 0.8 mg/dL (0.6-1.3); GLUCOSE 100 mg/dL (74-106); PROTEIN - SERUM 7.4 g/dL (6.4-8.2); SODIUM 140 mmol/L (136-145); UREA NITROGEN 7 mg/dL (7-18); eGFR NON AFRICAN AMERICAN 80 mL/min (90-120)
[2018-10-27 06:00] VITALS: BP 100/55
[2018-10-27 08:19] VITALS: BP 126/54
[2018-10-27 11:39] VITALS: BP 96/54
[2018-10-27 15:54] VITALS: BP 113/64
[2018-10-27 22:49] VITALS: BP 97/51
[2018-10-28] VITALS: BP 98/49
[2018-10-28 04:47] LABS: BASOPHILS 0.4 % (0-2); EOSINOPHILS 4.1 % (0-7); HEMATOCRIT 37.8 % (36.0-48.0); HEMOGLOBIN 11.4 g/dL (12-16); IMMATURE GRANULOCYTES 0.2 % (0-5); LYMPHOCYTES 31.8 % (15-50); MCHC 30.2 g/dL (31.0-37.0); MCV 86.1 fL (80.0-100.0); MEAN PLATELET VOLUME 11.3 fL (7.4-10.4); MONOCYTES 11.7 % (2-11); NEUTROPHILS 51.8 % (40-80); PLATELET COUNT 219 10x3/uL (130-400); RBC 4.39 10x6/uL (4.00-5.40); WBC 5.3 10x3/uL (4.8-10.8)
[2018-10-28 04:48] VITALS: BP 96/42
[2018-10-28 05:15] LABS: ALBUMIN 3.4 g/dL (3.4-5.0); ALKALINE PHOSPHATASE 102 U/L (46-116); ALT (SGPT) 41 U/L (10-68); BILIRUBIN - TOTAL 0.37 mg/dL (0.2-1.3); CALC OSMOLALITY 282 mosm/kg (275-300); CALCIUM 9.8 mg/dL (8.5-10.1); CARBON DIOXIDE 27.8 mmol/L (21.0-32.0); CHLORIDE - SERUM 104 mmol/L (98-107); CREATININE - SERUM 0.8 mg/dL (0.6-1.3); GLUCOSE 114 mg/dL (74-106); POTASSIUM - SERUM 4.3 mmol/L (3.5-5.1); PROTEIN - SERUM 7.4 g/dL (6.4-8.2); SODIUM 142 mmol/L (136-145); eGFR NON AFRICAN AMERICAN 80 mL/min (90-120)
[2018-10-28 05:24] LABS: UREA NITROGEN 10 mg/dL (7-18)
[2018-10-28 08:34] VITALS: BP 94/49
[2018-10-28 12:03] VITALS: BP 92/49
[2018-10-28 16:21] VITALS: BP 98/52
[2018-10-28 20:00] VITALS: BP 108/50
[2018-10-29 04:30] VITALS: BP 102/62
[2018-10-29 04:55] LABS: BASOPHILS 0.2 % (0-2); EOSINOPHILS 4.4 % (0-7); HEMATOCRIT 37.1 % (36.0-48.0); HEMOGLOBIN 11.3 g/dL (12-16); IMMATURE GRANULOCYTES 0.2 % (0-5); LYMPHOCYTES 27.8 % (15-50); MCHC 30.5 g/dL (31.0-37.0); MCV 85.5 fL (80.0-100.0); MEAN PLATELET VOLUME 11.1 fL (7.4-10.4); MONOCYTES 7.4 % (2-11); PLATELET COUNT 204 10x3/uL (130-400); RBC 4.34 10x6/uL (4.00-5.40); RDW 14.8 % (11.5-14.5); WBC 5.5 10x3/uL (4.8-10.8)
[2018-10-29 05:27] LABS: ALBUMIN 3.5 g/dL (3.4-5.0); ALKALINE PHOSPHATASE 103 U/L (46-116); ALT (SGPT) 44 U/L (10-68); BILIRUBIN - TOTAL 0.38 mg/dL (0.2-1.3); CALC OSMOLALITY 275 mosm/kg (275-300); CALCIUM 9.7 mg/dL (8.5-10.1); CARBON DIOXIDE 31.2 mmol/L (21.0-32.0); CHLORIDE - SERUM 101 mmol/L (98-107); CREATININE - SERUM 0.7 mg/dL (0.6-1.3); GLUCOSE 118 mg/dL (74-106); POTASSIUM - SERUM 3.9 mmol/L (3.5-5.1); PROTEIN - SERUM 7.4 g/dL (6.4-8.2); SODIUM 138 mmol/L (136-145); UREA NITROGEN 9 mg/dL (7-18); eGFR NON AFRICAN AMERICAN > 90 mL/min (90-120)
[2018-10-29 10:20] VITALS: BP 94/52
[2018-10-29 20:00] VITALS: BP 121/67
[2018-10-30] VITALS: BP 115/72
[2018-10-30 04:00] VITALS: BP 167/62
[2018-10-30 08:49] VITALS: BP 129/75
[2018-10-30 19:54] VITALS: BP 114/61
[2018-10-31] VITALS: BP 120/71
[2018-10-31 04:00] VITALS: BP 109/64
[2018-10-31 04:54] LABS: BASOPHILS 0.1 % (0-2); EOSINOPHILS 4.5 % (0-7); HEMATOCRIT 34.7 % (36.0-48.0); HEMOGLOBIN 10.8 g/dL (12-16); IMMATURE GRANULOCYTES 0.1 % (0-5); LYMPHOCYTES 19.5 % (15-50); MCHC 31.1 g/dL (31.0-37.0); MONOCYTES 8.3 % (2-11); NEUTROPHILS 67.5 % (40-80); PLATELET COUNT 180 10x3/uL (130-400); RBC 4.16 10x6/uL (4.00-5.40); RDW 14.7 % (11.5-14.5)
[2018-10-31 04:57] LABS: MCV 83.4 fL (80.0-100.0); WBC 6.9 10x3/uL (4.8-10.8)
[2018-10-31 08:45] VITALS: BP 108/70
[2018-10-31 11:53] VITALS: BP 106/65
[2018-10-31 15:33] VITALS: BP 116/80
[2018-10-31 19:38] VITALS: BP 109/71
[2018-11-01] VITALS: BP 105/57; BP 92/53
[2018-11-01 04:00] VITALS: BP 98/63
[2018-11-01 06:06] LABS: BASOPHILS 0.1 % (0-2); EOSINOPHILS 3.6 % (0-7); HEMATOCRIT 35.4 % (36.0-48.0); HEMOGLOBIN 11.2 g/dL (12-16); LYMPHOCYTES 19.2 % (15-50); MCH 26.2 pg (26.0-34.0); MCHC 31.6 g/dL (31.0-37.0); MCV 82.7 fL (80.0-100.0); MEAN PLATELET VOLUME 11.2 fL (7.4-10.4); MONOCYTES 6.3 % (2-11); NEUTROPHILS 70.8 % (40-80); PLATELET COUNT 174 10x3/uL (130-400); RBC 4.28 10x6/uL (4.00-5.40); RDW 14.8 % (11.5-14.5); WBC 7.2 10x3/uL (4.8-10.8)
[2018-11-01 08:26] VITALS: BP 116/79
[2018-11-01 11:57] VITALS: BP 100/64
[2018-11-01 15:13] VITALS: BP 88/67
[2018-11-01 20:21] VITALS: BP 102/52
[2018-11-02 08:05] VITALS: BP 88/68
[2018-11-02 10:04] LABS: BASOPHILS 0.1 % (0-2); EOSINOPHILS 3.6 % (0-7); HEMOGLOBIN 11.1 g/dL (12-16); IMMATURE GRANULOCYTES 0.1 % (0-5); MCH 26.2 pg (26.0-34.0); MCHC 31.7 g/dL (31.0-37.0); MCV 82.5 fL (80.0-100.0); MEAN PLATELET VOLUME 10.4 fL (7.4-10.4); MONOCYTES 7.1 % (2-11); NEUTROPHILS 71.1 % (40-80); PLATELET COUNT 175 10x3/uL (130-400); RBC 4.24 10x6/uL (4.00-5.40); RDW 14.5 % (11.5-14.5); WBC 6.8 10x3/uL (4.8-10.8)
[2018-11-02 10:21] LABS: ALKALINE PHOSPHATASE 100 U/L (46-116); ALT (SGPT) 27 U/L (10-68); BILIRUBIN - TOTAL 0.49 mg/dL (0.2-1.3); CALC OSMOLALITY 276 mosm/kg (275-300); CALCIUM 9.1 mg/dL (8.5-10.1); CARBON DIOXIDE 26.5 mmol/L (21.0-32.0); CHLORIDE - SERUM 103 mmol/L (98-107); CREATININE - SERUM 0.6 mg/dL (0.6-1.3); GLUCOSE 94 mg/dL (74-106); POTASSIUM - SERUM 3.7 mmol/L (3.5-5.1); PROTEIN - SERUM 7.4 g/dL (6.4-8.2); SODIUM 139 mmol/L (136-145); UREA NITROGEN 9 mg/dL (7-18); eGFR NON AFRICAN AMERICAN > 90 mL/min (90-120)
[2018-11-02 12:10] VITALS: BP 102/59
[2018-11-02] MEDS ORDERED: [UNRECOGNIZED DRUG - REMARK] MISC (12:10)
[2018-11-02] MEDS ORDERED: NEURONTIN 300300 MG PO (12:10)
[2018-11-02] MEDS ORDERED: BENADRYL INJ50 MG/ML IV (12:10)
[2018-11-02] MEDS ORDERED: COLACE100 MG PO (12:10)
[2018-11-02] MEDS ORDERED: NORCO-10 PO (12:10)
[2018-11-02] MEDS ORDERED: CYMBALTA30 MG PO (12:10)
[2018-11-02] MEDS ORDERED: Duragesic TRANSDERM (12:10)
[2018-11-02] MEDS ORDERED: VISTARIL50 MG PO (12:10)
[2018-11-02] MEDS ORDERED: ATIVAN IV (12:10)
[2018-11-02] MEDS ORDERED: DILAUDID2 MG PO (12:10)
[2018-11-02 20:00] VITALS: BP 103/63
[2018-11-03] VITALS: BP 104/62
[2018-11-03 04:33] LABS: BASOPHILS 0.1 % (0-2); EOSINOPHILS 3.2 % (0-7); HEMATOCRIT 36.4 % (36.0-48.0); HEMOGLOBIN 11.8 g/dL (12-16); IMMATURE GRANULOCYTES 0.1 % (0-5); LYMPHOCYTES 22.1 % (15-50); MCH 26.5 pg (26.0-34.0); MCHC 32.4 g/dL (31.0-37.0); MCV 81.8 fL (80.0-100.0); MEAN PLATELET VOLUME 10.6 fL (7.4-10.4); MONOCYTES 7.3 % (2-11); NEUTROPHILS 67.2 % (40-80); RBC 4.45 10x6/uL (4.00-5.40); RDW 14.3 % (11.5-14.5); WBC 8.5 10x3/uL (4.8-10.8)
[2018-11-03 04:36] LABS: PLATELET COUNT 229 10x3/uL (130-400)
[2018-11-03 04:52] LABS: ALBUMIN 3.1 g/dL (3.4-5.0); ALKALINE PHOSPHATASE 102 U/L (46-116); ALT (SGPT) 25 U/L (10-68); BILIRUBIN - TOTAL 0.38 mg/dL (0.2-1.3); CALC OSMOLALITY 276 mosm/kg (275-300); CALCIUM 9.3 mg/dL (8.5-10.1); CHLORIDE - SERUM 102 mmol/L (98-107); GLUCOSE 96 mg/dL (74-106); PHENYTOIN (DILANTIN) 7.4 ug/mL (10.0-20.0); POTASSIUM - SERUM 3.5 mmol/L (3.5-5.1); PROTEIN - SERUM 7.9 g/dL (6.4-8.2); SODIUM 139 mmol/L (136-145); UREA NITROGEN 9 mg/dL (7-18)
[2018-11-03 05:00] LABS: CREATININE - SERUM 0.8 mg/dL (0.6-1.3); eGFR NON AFRICAN AMERICAN 80 mL/min (90-120)
[2018-11-03 06:41] VITALS: BP 112/67
[2018-11-03 08:07] VITALS: BP 111/77
[2018-11-03 12:45] VITALS: BP 99/68
[2018-11-03 16:40] VITALS: BP 90/53
[2018-11-03 20:00] VITALS: BP 124/56
[2018-11-04 00:40] VITALS: BP 94/49
[2018-11-04 04:12] VITALS: BP 98/48
[2018-11-04 06:26] LABS: BASOPHILS 0.4 % (0-2); EOSINOPHILS 6.1 % (0-7); HEMATOCRIT 34.4 % (36.0-48.0); HEMOGLOBIN 10.9 g/dL (12-16); LYMPHOCYTES 27.6 % (15-50); MCHC 31.7 g/dL (31.0-37.0); MCV 81.9 fL (80.0-100.0); MEAN PLATELET VOLUME 10.6 fL (7.4-10.4); NEUTROPHILS 57.9 % (40-80); PLATELET COUNT 227 10x3/uL (130-400); RDW 14.4 % (11.5-14.5)
[2018-11-04 06:30] LABS: WBC 5.2 10x3/uL (4.8-10.8)
[2018-11-04 06:47] LABS: ALKALINE PHOSPHATASE 102 U/L (46-116); ALT (SGPT) 26 U/L (10-68); BILIRUBIN - TOTAL 0.33 mg/dL (0.2-1.3); CALC OSMOLALITY 276 mosm/kg (275-300); CALCIUM 9.2 mg/dL (8.5-10.1); CARBON DIOXIDE 26.8 mmol/L (21.0-32.0); CHLORIDE - SERUM 104 mmol/L (98-107); CREATININE - SERUM 0.8 mg/dL (0.6-1.3); GLUCOSE 88 mg/dL (74-106); POTASSIUM - SERUM 3.7 mmol/L (3.5-5.1); PROTEIN - SERUM 7.4 g/dL (6.4-8.2); SODIUM 140 mmol/L (136-145); UREA NITROGEN 11 mg/dL (7-18); eGFR NON AFRICAN AMERICAN 80 mL/min (90-120)
[2018-11-04 08:56] VITALS: BP 117/69
[2018-11-04 13:34] VITALS: BP 134/82
[2018-11-04 16:25] VITALS: BP 106/55
[2018-11-04 19:48] VITALS: BP 111/61
== END 2018-11-04 22:19 | disposition short-term general hospital (02) | DRG 74 ==
LOC: D.ER 16:03 → OBSVTIME 18:21 → D.EDHOLD 18:21 → D.MS 18:21
PROVIDERS: Family Medicine; Internal Medicine Nephrology
PROC: 3E0R33Z Introduction of Anti-inflammatory into Spinal Canal, Percutaneous Approach (ICD-10-PCS; principal; 2018-10-16)
PROC: 0WH Anatomical Regions, General, Insertion (ICD-10-PCS; 2018-10-16)
DX: G90.521 Complex regional pain syndrome I of right lower limb (principal); T84.84XA Pain due to internal orthopedic prosthetic devices, implants and grafts, initial encounter; M54.16 Radiculopathy, lumbar region; I10 Essential (primary) hypertension; M21.371 Foot drop, right foot; G89.18 Other acute postprocedural pain

== ENCOUNTER → 2019-05-25 09:30 | Outpatient (CLI) | payer OTHER ==
[2018-10-19 13:03] VITALS: BMI 34.1
[~2019-05-25 09:30] MED LIST changes: +ATIVAN IV; +BENADRYL INJ50 MG/ML IV; +COLACE100 MG PO; +CYMBALTA30 MG PO; +DILAUDID2 MG PO; +Duragesic TRANSDERM; +ESKALITH CR450 M1; +NEURONTIN 300300 MG PO; +NORCO-10 PO; +VISTARIL50 MG PO; +[UNRECOGNIZED DRUG - REMARK] MISC
== END | disposition home or self-care (01) ==
LOC: D.MAMMO 09:30
PROVIDERS: ATTEND Nurse Practitioner Family
DX: Z12.31 Encounter for screening mammogram for malignant neoplasm of breast (principal)